=== PATIENT | male | born 1960 | race Caucasian/White ===

== ENCOUNTER → 2019-11-04 09:49 | Outpatient (BNVA) | payer MEDICAID, SELFPAY | PROVIDERS: Family Provider Family Medicine; PCP Family Medicine; Visit Provider Specialist | DX: G60.0 Hereditary motor and sensory neuropathy (principal); M51.9 Unspecified thoracic, thoracolumbar and lumbosacral intervertebral disc disorder | CPT/HCPCS: 99213 ==

== ENCOUNTER → 2020-02-22 10:36 | Outpatient (BNVA) | payer MEDICAID, SELFPAY | PROVIDERS: Family Provider Family Medicine; PCP Family Medicine; Referring Provider Family Medicine; Visit Provider Orthopaedic Surgery | DX: M25.569 Pain in unspecified knee (principal); M25.462 Effusion, left knee; M25.461 Effusion, right knee | CPT/HCPCS: 73560; 73565 ==

== ENCOUNTER 2020-03-02 13:04 | Outpatient (CLI) | payer MEDICAID, SELFPAY ==
--- NOTE | 2020-03-02 13:45 | MR_ITS ---
WS: [id number] MRI LEFT KNEE NONCONTRAST TECHNIQUE: Axial PD, coronal PD fat sat, coronal PD, sagittal PD, and sagittal PD fat-sat images obta ined. CLINICAL INFORMATION: lateral meniscus tear of left knee COMPARISON: None. FINDINGS: Normal anatomic alignment. Distal quadriceps and patella tendons are intact. Hypertrophic patella. An terior and posterior cruciate ligaments are intact. Small amount of edema in Hoffa's fat pad. Tiny nicolette int effusion. Hazy intrasubstance signal abnormality involving the posterior horn medial meniscus. Ch ronic appearing intrasubstance signal abnormality involving the anterior and posterior horns lateral meniscus. Small radial tear involving the posterior horn lateral meniscus best seen on the coronal im aging. Moderate chondromalacia patella. No subchondral edema. Normal medial and lateral patellar retinaculum . Normal popliteal fossa. MR/MR knee LT wo con* [id number] IMPRESSION: 1. Small radial tear involving the posterior horn lateral meniscus best seen o n the coronal imaging, extending to the articular surface. 2. Otherwise chronic intrasubstance signal abnormality involving the medial an d lateral meniscus. 3. Anterior and posterior cruciate ligaments appear intact. 4. Moderate chondromalacia patella with hypertrophic patella.
== END 2020-03-02 13:05 | disposition home or self-care (01) ==
LOC: RADSHAW 13:06
PROVIDERS: PCP Family Medicine; Visit Provider Orthopaedic Surgery
DX: S83.282A Other tear of lateral meniscus, current injury, left knee, initial encounter (principal); X58.XXXA Exposure to other specified factors, initial encounter; M22.42 Chondromalacia patellae, left knee
CPT/HCPCS: 73721

== ENCOUNTER → 2020-10-31 08:31 | Outpatient (BNVA) | payer MEDICAID, SELFPAY | PROVIDERS: PCP Family Medicine; Visit Provider Specialist | DX: M72.2 Plantar fascial fibromatosis (principal); G60.0 Hereditary motor and sensory neuropathy; M51.9 Unspecified thoracic, thoracolumbar and lumbosacral intervertebral disc disorder | CPT/HCPCS: 99213 ==

== ENCOUNTER → 2020-11-17 13:23 | Outpatient (BNVA) | payer MEDICAID, SELFPAY | PROVIDERS: PCP Family Medicine; Referring Provider Specialist; Visit Provider Podiatrist Foot & Ankle Surgery | DX: G57.61 Lesion of plantar nerve, right lower limb (principal); G57.62 Lesion of plantar nerve, left lower limb; M79.671 Pain in right foot; M79.672 Pain in left foot | CPT/HCPCS: 73630 ==

== ENCOUNTER → 2022-01-02 10:25 | Outpatient (BNVA) | payer MEDICAID, SELFPAY | PROVIDERS: PCP Family Medicine; Referring Provider Family Medicine; Visit Provider Physician Assistant | DX: M51.9 Unspecified thoracic, thoracolumbar and lumbosacral intervertebral disc disorder (principal) | CPT/HCPCS: 72110 ==

== ENCOUNTER → 2022-01-11 08:59 | Outpatient (BNVA) | payer MEDICAID, SELFPAY | PROVIDERS: PCP Family Medicine; Visit Provider Orthopaedic Surgery | DX: Z01.818 Encounter for other preprocedural examination (principal); M51.26 Other intervertebral disc displacement, lumbar region | CPT/HCPCS: 87635 ==

== ENCOUNTER 2022-01-17 05:59 | Day surgery (SDC) | payer MEDICAID, SELFPAY ==
[2022-01-09 09:11] VITALS: BMI 31.1
--- NOTE | 2022-01-09 09:48 | ANES.PREANE2 ---
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,L4-5 Operation Date: 01/15/22 12:00 Proposed Procedures p Lumbar Spine Decompression L3/4/L4/5/44443/48201/lumbar stenosis w/neurogenic claudication(Not Applicable) - Fredis Doe, DO Familial anesthetic complications: None Was Beta Mara taken within 24 hours: N/A Social No alcohol and No tobacco Exam alert, oriented x 3, clear to auscultation bilaterally and regular rate & rhythm Airway Submandibular: within normal limits Cervical ROM: within normal limits Mallampati: Class II Metabolic Morbid Obesity Musc/skel Lower Back Pain and Osteoarthritis/DJD Anesthetic Plan ASA status: 3 Anesthesia: General Risk of > 500 ml blood loss (7ml/kg in children): No Medications/Allergies Home Medications Medication Instructions Recorded Confirmed Last Taken Type meloxicam 15 mg tablet 15 mg PO DAILY 02/22/20 01/09/22 Unknown History Allergies Allergy/AdvReac Type Severity Reaction Status Date / Time Penicillins Allergy itching Verified 01/02/22 10:37 [facility] Anesthesia Medical History (Updated 01/02/22 @ 14:42 by Balta Suero PA-C) Hypertension Neuropathy Right leg numbness Surgical History (Updated 01/09/22 @ 09:10 by Debbie Ji) History of appendectomy Family History Other Hypertension Denies family history of Diabetes CAD (coronary artery disease) Social History Smoking and tobacco status: never smoked Alcohol intake: former History of recent travel: No Data Anesthesia Cardiac Studies: No Data to Display
[2022-01-17] VITALS (11 sets, daily range): BP systolic 109–156; BP diastolic 58–114; PULSE 66–73; RESP 16–19; TEMP 36.1–36.4; O2SAT 93–100
--- NOTE | 2022-01-17 | SCC_ITS ---
Procedure done: 1. L3/4 laminectomy with partial facetectomies 2. L4/5 Laminectomies with partial facetectomies 11.4 seconds of fluoroscopic guidance, for a cumulative dose of 4.59 mGy, was provided to Dr. Doe by the radiology department. C-arm images of the lumbar spine were saved for the patient's permanent record. [facility]
--- NOTE | 2022-01-17 | XR_ITS ---
WS: [id number] XR lumbar spine 1V [id number] REASON FOR EXAM: lumbar decompression FINDINGS: Localization of the lumbar spine at the L4 level. XR/XR lumbar spine 1V [id number] IMPRESSION: Intraoperative localization of the lumbar spine.
[2022-01-17] MEDS: sodium chloride 0.9% 1,000 ML 30 ML IV (06:26)
--- NOTE | 2022-01-17 06:34 | P.ANESUD_ITS ---
Pre-Anesthetic Update Pre-Anesthetic Assessment: Date of Surgery/Procedure: 01/17/22 Preop Christine gnosis: HNP right L3-4,L4-5 Proposed Procedure: Operation Date: 01/17/22 07:00 Proposed Procedures p Lumbar Spine Decompression L3/4/L4/5/25783/33869/lumbar stenosis w/neurogenic claudication(Not Applicable) - Fredis Doe, DO Any changes to Pre-Anesthetic Assessment?: Yes Changes from Pre-Anesthetic Assessment: Patient sates his back quit hurting on saturday, eencouraged patient to inform surgeon, but he states It comes and goes Last Intake: Intake Last Liquid Date 01/16/22 Last Liquid Time 19:00 Last Solid Date 01/16/22 Last Solid Time 19:00 Vitals: Temperature 97.3 F L 01/17/22 06:09 Temperature Source Temporal Artery S can 01/17/22 06:09 Pulse Rate 66 01/17/22 06:09 Respiratory Rate 18 01/17/22 06:09 Blood Pressure 156/114 01/17/22 06:09 Blood Pressure Camila n 128 01/17/22 06:09 Pulse Oximetry 97 01/17/22 06:09 Oxygen Delivery Me thod 01/17/22 06:12 Exam: Pre-Anes Outpt Exam: alert, oriented x 3, clear to auscultation bilaterally and regular rate & rhythm Cardiac Studies: No Data to Display
[2022-01-17] MEDS: clindamycin 900 MG/50 ML PREMIX 100 MG IV (06:56)
--- NOTE | 2022-01-17 06:58 | W.PM.OPSUD ---
Surgery/Procedure H&P Update DATE OF PROCEDURE: January 17, 2022 DATE H&P PERFORMED: 01/02/22 H&P UPDATE INFORMATION: I have reviewed H&P completed within last 30 days, I have examined patient prior to procedure and No changes to prior documentation PREOP DIAGNOSIS: HNP right L3-4,L4-5 PLANNED PROCEDURE: Operation Date: 01/17/22 07:00 Proposed Procedures p Lumbar Spine Decompression L3/4/L4/5/61693/81110/lumbar stenosis w/neurogenic claudication(Not Applicable) - Fredis Doe DO
[2022-01-17] MEDS: vancomycin 1,000 MG SDV 1000 MG XX (08:01)
--- NOTE | 2022-01-17 08:27 | PM.OP ---
Operative Report Date of procedure: January 17, 2022 Pre-op diagnosis: Preop Diagnosis HNP right L3-4,L4-5 Post-op diagnosis: same Procedure done: 1. L3/4 laminectomy with partial facetectomies 2. L4/5 Laminectomies with partial facetectomies Procedure: 1. L3/4 laminectomy with partial facetectomies 2. L4/5 Laminectomies with partial facetectomies Patient is brought to the operative suite. After undergoing anesthesia they are placed in the prone position. All areas of impingement are well padded. Patient is then prepped and draped in the normal sterile fashion. A skin incision is made over the L3/4 and L4/5 level. This is confirmed under c-arm guidance. A bovie is used to clear the soft tissue off the lamina and the L3/4 facet joint. A high speed manny is then used to perform the laminectomy and take down the medial aspect of the L 3/4 facet joint. A kerrison rongeure was then used to take down the remaining lamina and smooth the edged of the laminectomy up to the point where the ligamentum flavum attaches. Attention was then brought to the medial aspect of the facet joint. The remaining medial aspect of the superior and inferior aspect of the facet joint were taken down with the kerrison from the pedicle of L3 to L 4. The facet joint had significant hypertrophy. Attention was then brought to the Ligamentum Flavum. The ligament was taken down from the lamina of L3 to L4 and out medially to the remaining facet joint. The ligament was thick. The dura was then exposed. The dura was in good repair. The L3 nerve was then traced with a curette out the L3/4 foramen and found to be adequately decompressed. The L4 nerve was traced with a curette around the L4 pedicle. The lateral recess was opened with a kerrison helping to further decompress the L4 nerve. The high speed manny was used to take down the spinous process and then the contralateral lamina of L3. The kerrison rongeur was used to take down the remaining lamina to the point where the ligamentum flavum attached and the ligamentum flavum was taken down from L3 to L4. The kerrison rongeur was then used to reach across and take down the medial aspect of the contralateral L3/4 facet joint.The currete was used to trace the contralateral L3 nerve out the L3/4 foramen to make sure it was decompressed adequatesly and the L4 was traced around the L4 pedicle. The lateral recess was opened further with the kerrison to ensure the L4 is adequately decompressed. A bovie is used to clear the soft tissue off the lamina 4 and the L 4/5 facet joint. A high speed manny is then used to perform the laminectomy and take down the medial aspect of the L 4/5 facet joint. A kerrison rongeure was then used to take down the remaining lamina and smooth the edged of the laminectomy up to the point where the ligamentum flavum attaches. Attention was then brought to the medial aspect of the facet joint. The remaining medial aspect of the superior and inferior aspect of the facet joint were taken down with the kerrison from the pedicle of L4 to L 5. The facet joint had significant hypertrophy. Attention was then brought to the Ligamentum Flavum. The ligament was taken down from the lamina of L4 to L5 and out medially to the remaining facet joint. The ligament was thick. The dura was then exposed. The dura was in good repair. The L4 nerve was then traced with a curette out the L4/5 foramen and found to be adequately decompressed. The L5 nerve was traced with a curette around the L5 pedicle. The lateral recess was opened with a kerrison helping to further decompress the L5 nerve. The high speed manny was used to take down the spinous process and then the contralateral lamina of L4. The kerrison rongeur was used to take down the remaining lamina to the point where the ligamentum flavum attached and the ligamentum flavum was taken down from L4 to L5. The kerrison rongeur was then used to reach across and take down the medial aspect of the contralateral L4/5 facet joint.The currete was used to trace the contralateral L4 nerve out the L4/5 foramen to make sure it was decompressed adequatesly and the L5 was traced around the L5 pedicle. The lateral recess was opened further with the kerrison to ensure the L5 is adequately decompressed. Wound is then irrigated copiously with saline and surgiflo is used to stop any bleeding. The tubular retractor is removed and the wound is closed with vicryl and monocryl suture. Glue is then used to protect the wound. A sterile dressing is then placed. Patient was then placed in the supine position and transferred to the PACU in stable condition.
[2022-01-17] MEDS: fentaNYL 50 mcg/mL INJ 2mL IVP (08:56)
[2022-01-17] MEDS: HYDROcodone-acetaminophen 5-325 mg Tablet 1 TAB PO (10:04)
--- NOTE | 2022-01-17 13:31 | ANE.PACU2 ---
Inpatient post-anesthesia follow up: Airway intact: Yes Vital signs: Temperature 97.6 F Pulse Rate 73 Respiratory Rate 18 Blood Pressure 122/70 Pulse Oximetry 97 Oxygen Delivery Me thod Room Air Oxygen Flow Rate 6 Fraction of Inspir ed Oxygen Hydration adequate: Yes Nausea and vomiting: No Pain level: 2 Mental status: Baseline
== END 2022-01-17 10:05 | disposition home or self-care (01) ==
PROVIDERS: PCP Family Medicine; Visit Provider Orthopaedic Surgery
PROC: (CPT 63005; principal; 2022-01-17 07:00)
DX: M48.062 Spinal stenosis, lumbar region with neurogenic claudication (principal); E66.01 Morbid (severe) obesity due to excess calories; Z68.31 Body mass index [BMI] 31.0-31.9, adult; I10 Essential (primary) hypertension; Z82.49 Family history of ischemic heart disease and other diseases of the circulatory system; G62.9 Polyneuropathy, unspecified
CPT/HCPCS: 63047; 63048; 72020; 76000; 86850; 86900; J0330; J1100; J2250; J2405; J2704; J2710; J3010; J3370; J3490; J7030

== ENCOUNTER → 2022-01-18 10:33 | Outpatient (BNVA) | payer MEDICAID, SELFPAY | PROVIDERS: PCP Family Medicine; Visit Provider Physician Assistant | DX: Z47.89 Encounter for other orthopedic aftercare (principal); Z98.890 Other specified postprocedural states | CPT/HCPCS: 99024; 99999 ==

== ENCOUNTER → 2022-01-23 10:11 | Outpatient (BNVA) | payer MEDICAID, SELFPAY | PROVIDERS: PCP Family Medicine; Visit Provider Orthopaedic Surgery | DX: Z47.89 Encounter for other orthopedic aftercare (principal); Z98.890 Other specified postprocedural states | CPT/HCPCS: 99024; 99999 ==

== ENCOUNTER 2022-01-23 11:32 | Inpatient (IN) | payer MEDICAID, SELFPAY ==
[2022-01-23 11:46] VITALS: BP 163/90; PULSE 74; RESP 20; TEMP 37; O2SAT 97; BMI 31.8
--- NOTE | 2022-01-23 11:56 | W.ED.BACK ---
Documented by User: VIRGEN Banks 01/23/22 15:35 HPI - Back Pain/Injury General: Chief Complaint: Back Pain/Injury Stated Complaint: back pain Time Seen by Provider: 01/23/22 11:56 Source: patient Mode of arrival: ambulatory Limitations: no limitations History of Present Illness: Patient is a 61-year-old male who presents to ED today at the request of Dr. Doe for lumbar MRI imaging. Patient had surgery by Dr. Doe on 01/17. Dr. Doe saw patient in his office today and patient was complaining of worsening back pain and bilateral leg weakness therefore was sent to the ED for evaluation of a possible epidural hematoma. Patient states he has had pain following the surgery but it has worsened over the past 72 hours. He is complaining of pain down the bilateral posterior aspects of his legs. He does not complain of urinary retention or bowel incontinence. MD elicited complaint: back pain Pertinent past history: back surgery Onset (ago): day(s) Timing: constant Severity: severe Location: lumbar spine Radiation: left upper leg and right upper leg Associated symptoms: Reports difficulty walking (secondary to pain); Deny chills, fatigue or fever(s) Work related injury: No Review of Systems Const: Denies: fever(s), chills, body aches, fatigue or malaise Card: Denies: chest pain Resp: Denies: dyspnea Musc: Reports: back pain; Denies: neck pain, extremity pain or joint pain Skin/Breast: Denies: rash Neuro: Reports: weakness in extremities and difficulty walking (secondary to pain); Denies: headache(s) [facility] ED PFSH: Medical History Hypertension Neuropathy Right leg numbness Surgical History History of appendectomy Family History Other Hypertension Denies family history of Diabetes CAD (coronary artery disease) Social History Smoking and tobacco status: never smoked Alcohol intake: former History of recent travel: No Physical Exam Const: COMMON NORMALS: no acute distress, patient oriented x3, no limitations and alert GENERAL APPEARANCE: cooperative ORIENTATION/CONSCIOUSNESS: Yes awake, Yes oriented to person, Yes oriented to place and Yes oriented to time Neck/C-Spine: COMMON NORMALS: full ROM CERVICAL SPINE: Yes cervical ROM normal, No pain with cervical ROM and No Cervical spine tenderness Resp: COMMON NORMALS: normal respiratory effort and clear to auscultation bilaterally AUSCULTATION: clear to auscultation bilaterally Cardio: COMMON NORMALS: regular rate and regular rhythm RATE: regular rate RHYTHM: regular rhythm Back/Pelvis: THORACIC SPINE/UPPER BACK: Yes normal to inspection LUMBAR SPINE/LOWER BACK: Yes ROM limited, Yes lumbar spinal tenderness and No paraspinal muscle spasm PELVIS: Yes buttocks normal OTHER: pt had detailed lumbar/neurological evaluation performed by neurosurgeon prior to arrival to ED; he is currently seated in a recliner thus making exam difficult Extremity: GENERAL: Yes normal exam except as noted OTHER: mild bilateral LE non-pitting edema that he states is chronic Neuro: COMMON NORMALS: patient oriented x3, moves all extremities, no focal motor deficits and no sensory deficits noted SENSORIUM/ORIENTATION: Yes alert, Yes oriented to person, Yes oriented to place and Yes oriented to time Skin: COMMON NORMALS: no rashes or lesions noted NARRATIVE SKIN EXAM: surgical lumbar incision looks clean/infection free GENERAL SKIN EXAM: no rashes or lesions noted Course Consultations: Consultation #1: Dr. Doe-admit to his service with plan for OR tomorrow Vital Signs: Vital signs: Vital Signs Temperature 98.6 F 01/23/22 11:46 Pulse Rate 74 01/23/22 11:46 Respiratory Rate 20 H 01/23/22 11:46 Blood Pressure 163/90 01/23/22 11:46 Pulse Oximetry 97 01/23/22 11:46 MDM - Back Pain/Injury Medical Decision Making Will admit to Dr. Doe with plan for hematoma evaluation tomorrow. Labs : 01/23/22 12:24 01/23/22 12:24 Radiology Impressions Lumbar Spine MRI 01/23/22 12:10 IMPRESSION: 1. Recent decompressive laminectomy defects L3-L4 and L4-L5. 2. Moderate to severe narrowing of the thecal sac with crowding of the cauda equina nerve rootlets worse posterior to the L4 vertebral body level due to dorsal epidural blood products with fluid and edema. 3. Central disc extrusion L3-L4 with cranial migration of disc material results in moderate to severe central canal stenosis not significantly changed. 4. No other significant changes compared to previous. Notified VIRGEN Banks at 01/23/2022 2:50 PM. Laboratory Results WBC 6.0 10^3/uL (4.0-10.0) 01/23/22 12: RBC 4.19 10^6/uL (4.1-5.3) 01/23/22 12: Hgb 12.8 g/dL (11.7-16.6) 01/23/22 12: Hct 39.1 % (42.0-52.0) L 01/23/22 12: MCV 93.3 fl (80-94) 01/23/22: MCH 30.5 pg (28.0-34.0) 01/23/22 12: MCHC 32.7 g/dL (30.0-36.0) 01/23/22: RDW 12.4 % (12.1-15.1) 01/23/22 12: Plt Count 344 10^3/cmm (130-400) 01/23/22 12: MPV 9.1 fL (7.4-10.4) 01/23/22: Neut % (Auto) 65.1 % 01/23/22: Lymph % (Auto) 24.6 % 01/23/22 12: Scott % (Auto) 8.0 % 01/23/22 12: Eos % (Auto) 1.5 % 01/23/22: Baso % (Auto) 0.5 % 01/23/22: Neut # (Auto) 3.88 10^3/uL (1.8-7.7) 01/23/22 12: Lymph # (Auto) 1.5 10^3/uL (0.8-4.8) 01/23/22: Scott # (Auto) 0.5 10^3/uL (0.2-0.9) 01/23/22 12: Eos # (Auto) 0.1 10^3/uL (0.0-0.8) 01/23/22: Baso # (Auto) 0.0 10^3/uL (0.0-0.1) 01/23/22 12:24 Nucleated RBC % (auto) 0 % 01/23/22 12:24 Nucleated RBCs # 0.0 /100WBC 01/23/22 12:24 Sodium 138 mmol/L (136-145) 01/23/22 12:24 Potassium 3.8 mmol/L (3.5-5.1) 01/23/22 12:24 Chloride 103 mmol/L (98-107) 01/23/22 12:24 Carbon Dioxide 28 mmol/L (22-29) 01/23/22 12:24 Anion Gap 10.8 (5-19) 01/23/22 12:24 BUN 16 mg/dL (8-23) 01/23/22 12:24 Creatinine 0.9 mg/dL (0.7-1.2) 01/23/22 12:24 GFR Calculation 86.1 mL/min (90-130) L 01/23/22 12:24 Glucose 117 mg/dL (65-115) H 01/23/22 12:24 Calculated Osmolality 288 mOsm/kg (285-295) 01/23/22 12:24 Calcium 9.4 mg/dL (8.5-10.5) 01/23/22 12:24 Total Bilirubin 0.2 mg/dL (0.15-1.2) 01/23/22 12:24 AST 17 U/L (0-40) 01/23/22 12:24 ALT 13 U/L (0-41) 01/23/22 12:24 Alkaline Phosphatase 79 IU/L (40-130) 01/23/22 12:24 Total Protein 6.6 g/dL (6.6-8.7) 01/23/22 12:24 Albumin 3.9 g/dL (3.5-5.2) 01/23/22 12:24 Globulin 2.7 g/dL (1.3-4.6) 01/23/22 12:24 Discharge Plan Discharge Patient Disposition: Admitted As Inpatient Clinical Impression: Spinal epidural hematoma Condition: Stable Coding Level of Care Code ED Electrician Second for Chg Fwd Exam Comprehensive Documented by User: Nik Liz DO 01/23/22 15:38 HPI - Back Pain/Injury General: Chief Complaint: Back Pain/Injury Stated Complaint: back pain Time Seen by Provider: 01/23/22 11:56 PFSH ED PFSH: Medical History Hypertension Neuropathy Right leg numbness Surgical History History of appendectomy Family History Other Hypertension Denies family history of Diabetes CAD (coronary artery disease) Social History Smoking and tobacco status: never smoked Alcohol intake: former History of recent travel: No Course Vital Signs: Vital signs: Vital Signs Temperature 98.6 F 01/23/22 11:46 Pulse Rate 74 01/23/22 11:46 Respiratory Rate 20 H 01/23/22 11:46 Blood Pressure 163/90 01/23/22 11:46 Pulse Oximetry 97 01/23/22 11:46 MDM - Back Pain/Injury Medical Decision Making Will admit to Dr. Doe with plan for hematoma evaluation tomorrow. Reviewed and discussed with midlevel. Will admit orders written diagnosis epidural hematoma Dr. Doe has agreed to take his primary physician. Medical Records I reviewed the patient's medical records. Labs I reviewed the patient's lab results. : 01/23/22 12:24 01/23/22 12:24 Radiology Impressions Lumbar Spine MRI 01/23/22 12:10 IMPRESSION: 1. Recent decompressive laminectomy defects L3-L4 and L4-L5. 2. Moderate to severe narrowing of the thecal sac with crowding of the cauda equina nerve rootlets worse posterior to the L4 vertebral body level due to dorsal epidural blood products with fluid and edema. 3. Central disc extrusion L3-L4 with cranial migration of disc material results in moderate to severe central canal stenosis not significantly changed. 4. No other significant changes compared to previous. Notified VIRGEN Banks at 01/23/2022 2:50 PM. Laboratory Results WBC 6.0 10^3/uL (4.0-10.0) 01/23/22: RBC 4.19 10^6/uL (4.1-5.3) 01/23/22 12: Hgb 12.8 g/dL (11.7-16.6) 01/23/22: Hct 39.1 % (42.0-52.0) L 01/23/22: MCV 93.3 fl (80-94) 01/23/22: MCH 30.5 pg (28.0-34.0) 01/23/22: MCHC 32.7 g/dL (30.0-36.0) 01/23/22: RDW 12.4 % (12.1-15.1) 01/23/22: Plt Count 344 10^3/cmm (130-400) 01/23/22: MPV 9.1 fL (7.4-10.4) 01/23/22: Neut % (Auto) 65.1 % 01/23/22: Lymph % (Auto) 24.6 % 01/23/22: Scott % (Auto) 8.0 % 01/23/22 Eos % (Auto) 1.5 % 01/23/22 Baso % (Auto) 0.5 % 01/23/22 Neut # (Auto) 3.88 10^3/uL (1.8-7.7) 01/23/22 Lymph # (Auto) 1.5 10^3/uL (0.8-4.8) 01/23/22: Scott # (Auto) 0.5 10^3/uL (0.2-0.9) 01/23/22 Eos # (Auto) 0.1 10^3/uL (0.0-0.8) 01/23/22 Baso # (Auto) 0.0 10^3/uL (0.0-0.1) 01/23/22 Nucleated RBC % (auto) 0 % 01/23/22 Nucleated RBCs # 0.0 /100WBC 01/23/22 12:24 Sodium 138 mmol/L (136-145) 01/23/22 12:24 Potassium 3.8 mmol/L (3.5-5.1) 01/23/22 12:24 Chloride 103 mmol/L (98-107) 01/23/22 12:24 Carbon Dioxide 28 mmol/L (22-29) 01/23/22 12:24 Anion Gap 10.8 (5-19) 01/23/22 12:24 BUN 16 mg/dL (8-23) 01/23/22 12:24 Creatinine 0.9 mg/dL (0.7-1.2) 01/23/22 12:24 GFR Calculation 86.1 mL/min (90-130) L 01/23/22 12:24 Glucose 117 mg/dL (65-115) H 01/23/22 12:24 Calculated Osmolality 288 mOsm/kg (285-295) 01/23/22 12:24 Calcium 9.4 mg/dL (8.5-10.5) 01/23/22 12:24 Total Bilirubin 0.2 mg/dL (0.15-1.2) 01/23/22 12:24 AST 17 U/L (0-40) 01/23/22 12:24 ALT 13 U/L (0-41) 01/23/22 12:24 Alkaline Phosphatase 79 IU/L (40-130) 01/23/22 12:24 Total Protein 6.6 g/dL (6.6-8.7) 01/23/22 12:24 Albumin 3.9 g/dL (3.5-5.2) 01/23/22 12:24 Globulin 2.7 g/dL (1.3-4.6) 01/23/22 12:24 Discharge Plan Discharge Patient Disposition: Admitted As Inpatient Clinical Impression: Spinal epidural hematoma Condition: Stable Coding Level of Care Code ED Electrician Second for Chg Fwd Exam Comprehensive
--- NOTE | 2022-01-23 12:10 | MR_ITS ---
WS: [id number] MRI LUMBAR SPINE WITH CONTRAST TECHNIQUE: Sagittal T1, T2 and STIR imaging. Axial T1 and T2 imaging. Post gadolinium imaging was obt ained. CLINICAL INFORMATION: recent surgery; back pain, leg weakness COMPARISON: MRI December 22, 2021 FINDINGS: Interval postoperative changes laminectomy defects L3-L4 and L4-L5 are new from previous. Recent lami nectomy defects with postoperative edema and epidural blood products at the L3-L4 and L4-L5 level. Th is is worse posterior to the L4 vertebral body with mass effect on the thecal sac. This results in mo derate to severe narrowing of the thecal sac with crowding of the cauda equina nerve rootlets worse a t the L4 level. Recommend correlation with clinical symptoms. Moderate to severe central canal stenos is L3-L4 due to stable subligamentous disc extrusion at this level. This is unchanged from previous. L1-L2: Normal. L2-L3: Mild annular bulging. Mild central canal stenosis. Moderate facet arthropathy. LEFT foraminal protrusion with mild LEFT foraminal narrowing. RIGHT foramen is patent. Moderate facet arthropathy. L3-L4: Central disc extrusion with disc material migration posterior to the L3 vertebral body. Modera te to severe central canal stenosis with moderate facet arthropathy similar to the prior examination. Mild LEFT greater than RIGHT foraminal narrowing. L4-L5: Wide laminectomy defects. Epidural blood products and edema in the laminectomy sites with mode rate to severe compression of the thecal sac. Moderate to severe crowding of the cauda equina nerve r ootlets. Mild RIGHT greater than LEFT foraminal narrowing. Moderate facet arthropathy. L5-S1: Mild disc bulging and osteophytic ridging. Mild facet arthropathy. Spinal canal and foramen ar e patent. Visualized pelvic bony structures: Normal. Paravertebral soft tissues: Normal. MR/MR lumbar spine wo/w con [id number] IMPRESSION: 1. Recent decompressive laminectomy defects L3-L4 and L4-L5. 2. Moderate to severe narrowing of the thecal sac with crowding of the cauda e quina nerve rootlets worse posterior to the L4 vertebral body level due to dors al epidural blood products with fluid and edema. 3. Central disc extrusion L3-L4 with cranial migration of disc material result s in moderate to severe central canal stenosis not significantly changed. 4. No other significant changes compared to previous. Notified VIRGEN Banks at 01/23/2022 2:50 PM.
[2022-01-23 12:38] LABS: Basophils % 0.5 %; Eosinophils # 0.1 10^3/uL (0.0-0.8); Eosinophils % 1.5 %; Hematocrit 39.1 % (42.0-52.0); Hemoglobin 12.8 g/dL (11.7-16.6); Lymphocytes # 1.5 10^3/uL (0.8-4.8); Lymphocytes % 24.6 %; Mean Corpuscular HGB Conc 32.7 g/dL (30.0-36.0); Mean Corpuscular Hemoglobin 30.5 pg (28.0-34.0); Mean Corpuscular Volume 93.3 fl (80-94); Mean Platelet Volume 9.1 fL (7.4-10.4); Monocytes # 0.5 10^3/uL (0.2-0.9); Neutrophils # 3.88 10^3/uL (1.8-7.7); Neutrophils % 65.1 %; Nucleated Red Blood Cells % 0 %; Platelet Count 344 10^3/cmm (130-400); Red Blood Count 4.19 10^6/uL (4.1-5.3); Red Cell Distribution Width 12.4 % (12.1-15.1)
[2022-01-23 13:04] LABS: Alanine Aminotransferase 13 U/L (0-41); Albumin Level 3.9 g/dL (3.5-5.2); Alkaline Phosphatase 79 IU/L (40-130); Anion Gap 10.8 (5-19); Aspartate Amino Transferase 17 U/L (0-40); Blood Urea Nitrogen 16 mg/dL (8-23); Calcium 9.4 mg/dL (8.5-10.5); Carbon Dioxide 28 mmol/L (22-29); Chloride 103 mmol/L (98-107); Globulin 2.7 g/dL (1.3-4.6); Glomerular Filtration Rate 86.1 mL/min (90-130); Glucose 117 mg/dL (65-115); Osmolality Calculated 288 mOsm/kg (285-295); Potassium 3.8 mmol/L (3.5-5.1); Sodium 138 mmol/L (136-145); Total Bilirubin 0.2 mg/dL (0.15-1.2); Total Protein 6.6 g/dL (6.6-8.7)
--- NOTE | 2022-01-23 15:25 | ECG_ITS ---
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 Measurements Intervals [place] Rate: 61 P: 30 DC: 160 QRS: 11 QRSD: 85 T: 49 QT: 387 QTc: 392 Interpretive Statements SINUS RHYTHM WITH OCCASIONAL VENTRICULAR PREMATURE COMPLEXES No previous ECG available for comparison Electronically Signed On 01-23-2022 18:37:13 CDT by Lana Kirby M.D. [id number] f
--- NOTE | 2022-01-23 15:25 | XRR_ITS ---
PROCEDURE INFORMATION: Exam: XR Chest Exam date and time: 01/23/2022 3:57 PM Age: 61 years old Clinical indication: Cough and dyspnea; Additional info: Dyspnea/cough TECHNIQUE: Imaging protocol: XR of the chest. Views: 1 view. COMPARISON: No relevant prior studies available. FINDINGS: Lungs: Unremarkable. No consolidation. Pleural spaces: Unremarkable. No pleural effusion. No pneumothorax. Heart/Mediastinum: Unremarkable. No cardiomegaly. Bones/joints: Unremarkable. XR/XR chest 1V portable [id number] IMPRESSION: No acute findings.
[2022-01-23 16:05] LABS: INR 0.89 (0.8-1.2); Partial Thromboplastin Time 24.2 SECONDS (23.9-36.7)
[2022-01-23 16:27] VITALS: BP 155/93; PULSE 61; RESP 16; TEMP 37.1; O2SAT 97
[2022-01-23 16:58] VITALS: BP 155/93; PULSE 61; RESP 16; TEMP 37.1; O2SAT 97
[2022-01-23] MEDS: D5-NS 0.45% + KCL 20 mEq 20 MEQ/1,000 ML BAG 100 MEQ IV (17:47)
[2022-01-23] MEDS: morphine 4 mg/mL SDV 1 mL IVP ×2 (17:47→21:55)
[2022-01-23 19:33] VITALS: BP 164/99; PULSE 62; RESP 16; TEMP 36.7; O2SAT 96
--- NOTE | 2022-01-23 21:00 | NUR.SHIFT ---
pt states he has numbness in bilateral legs. A&ox4, clear speech, claims left eye had surgery, which is why left pupil is smaller.
[2022-01-23 21:55] VITALS: RESP 20
[2022-01-24] VITALS (27 sets, daily range): BP systolic 119–154; BP diastolic 69–92; PULSE 59–77; RESP 14–116; TEMP 36.3–36.9; O2SAT 91–100
[2022-01-24] MEDS: morphine 4 mg/mL SDV 1 mL IVP ×2 (02:03→05:51)
[2022-01-24] MEDS: D5-NS 0.45% + KCL 20 mEq 20 MEQ/1,000 ML BAG 100 MEQ IV (04:23)
[2022-01-24 06:15] LABS: Basophils % 0.4 %; Eosinophils # 0.2 10^3/uL (0.0-0.8); Eosinophils % 2.7 %; Hematocrit 38.4 % (42.0-52.0); Hemoglobin 12.4 g/dL (11.7-16.6); Lymphocytes # 1.8 10^3/uL (0.8-4.8); Mean Corpuscular HGB Conc 32.3 g/dL (30.0-36.0); Mean Corpuscular Hemoglobin 30.7 pg (28.0-34.0); Monocytes # 0.6 10^3/uL (0.2-0.9); Monocytes % 10.5 %; Neutrophils # 2.98 10^3/uL (1.8-7.7); Neutrophils % 53.9 %; Nucleated Red Blood Cells % 0 %; Platelet Count 290 10^3/cmm (130-400); Red Blood Count 4.04 10^6/uL (4.1-5.3); Red Cell Distribution Width 12.4 % (12.1-15.1); White Blood Count 5.5 10^3/uL (4.0-10.0)
[2022-01-24 07:03] LABS: Anion Gap 13.5 (5-19); Blood Urea Nitrogen 17 mg/dL (8-23); Calcium 9.1 mg/dL (8.5-10.5); Carbon Dioxide 26 mmol/L (22-29); Chloride 104 mmol/L (98-107); Creatinine Clr Calc Pharmacy 123.8856; Glomerular Filtration Rate 98.6 mL/min (90-130); Glucose 94 mg/dL (65-115); Osmolality Calculated 289 mOsm/kg (285-295); Potassium 4.5 mmol/L (3.5-5.1); Sodium 139 mmol/L (136-145)
--- NOTE | 2022-01-24 07:58 | P.HP_ITS ---
Documented by User: Balta Suero PA-C 01/24/22 08:03 Providers/Chief Complaint Admitting Physician: Fredis Doe DO Primary Care Provider: Mauricio Gasca Chief Complaint: back pain History of Present Illness Lazaro Stanley is a 61 year old male underwent a decompression proximally week and a half ago and was progressing nicely. His leg pain was resolved but had excessive drainage from his lumbar incision that was bloody. With compressive dressings the drainage was stopped followed by progressive weakness and pain returning to his legs. Inability to walk distances. States the pain is a 10 out of 10 on the pain scale. He denies any loss of bowel or bladder control. Denies any fever chills or drainage from his incisional site. He underwent an MRI scan that showed an epidural hematoma. He was then unable to tolerate the pain through the night and presented to the hospital where he was admitted. Plan will be to proceed with a operative decompression for the evacuation of the epidural hematoma. An extensive review of the patient's past medical history, surgical history, allergies, medications, family history, social history, and review of systems was completed Review of Systems Const: Denies: fever(s), chills, body aches, fatigue or malaise Card: Denies: chest pain Resp: Denies: dyspnea Musc: Reports: back pain; Denies: neck pain, extremity pain or joint pain Skin/Breast: Denies: rash Neuro: Reports: weakness in extremities and difficulty walking (secondary to pain); Denies: headache(s) Medications/Allergies Home Medications Medication Instructions Recorded Confirmed Last Taken Type meloxicam 15 mg tablet 15 mg PO DAILY 02/22/20 01/23/22 01/02/22 History hydrocodone 5 mg-acetaminophen 325 1 - 2 tab PO .Q4-6H 5 Days #40 tab 01/23/22 01/23/22 01/23/22 05:30 Rx mg tablet 2 tabs metaxalone 800 mg tablet 800 mg PO Q8H PRN 01/23/22 01/23/22 01/09/22 History naproxen sodium 220 mg tablet 220 mg PO Q12H PRN 01/23/22 01/23/22 Unknown History (Aleve) ropinirole 0.5 mg tablet 0.5 mg PO BEDTIME PRN 01/23/22 01/23/22 Unknown History Allergies Allergy/AdvReac Type Severity Reaction Status Date / Time Penicillins Allergy itching Verified 01/23/22 15:57 PFSH Acute PFSH: Medical History Hypertension Neuropathy Right leg numbness Surgical History History of appendectomy Family History Other Hypertension Denies family history of Diabetes CAD (coronary artery disease) Social History Smoking and tobacco status: never smoked Alcohol intake: former History of recent travel: No Vitals/I&O/Wt Last Vital Signs Temp 98.0 F 01/24/22 07:54 Pulse 59 L 01/24/22 07:54 Resp 18 01/24/22 07:54 BP 148/92 01/24/22 07:54 Pulse Ox 96 01/24/22 07:54 01/23/22 01/24/22 01/24/22 22:59 06:59 14:59 Intake Total 1444 / 1444 Balance 1444 / 1444 Weight last 48 hrs Weight 235 lb Weight 235 lb Physical Exam Narrative: He is alert oriented x3 he has a good general appearance normal mood and affect.? Incisional site appears to be healing nicely without any evidence of drainage.? There is no evidence of infection no erythema.? He does have progressive weakness in both legs he has positive straight leg raise bilaterally is attempt to stand he is unable to dorsiflex and plantarflex comfortably.? He has swelling down both legs.? He is a difficult time walking he is ambulating with a cane.? He has good sensation light touch down both lower extremities skin is clear warm femoral good cap refill.? His calves are supple. HENMT: COMMON NORMALS: normocephalic Resp: COMMON NORMALS: normal respiratory effort Cardio: COMMON NORMALS: regular rate and regular rhythm GI: COMMON NORMALS: non-tender : COMMON NORMALS: Yes no CVA tenderness Psych: COMMON NORMALS: cooperative Data : 01/24/22 05:50 01/24/22 05:50 A&P Assessment and plan (1) Spinal epidural hematoma: Proceed with evacuation of the epidural hematoma. Discussed with the patient and he agrees. Discussed with Dr. Winchester and he agrees above-stated plan. Status: Acute (2) Status post lumbar laminectomy: Status: Acute Attestations Medical Necessity Statement*: Evacuation of epidural hematoma Coding Level of Care Code Acute Supervisor Sulfuric Acid Plant for Chg Fwd Exam Detailed Diagnoses Spinal epidural hematoma Status post lumbar laminectomy Z98.890
[2022-01-24] MEDS: sodium chloride 0.9% 1,000 ML 30 ML IV (09:58)
[2022-01-24] MEDS: fentaNYL 50 mcg/mL INJ 2mL IVP ×2 (10:13→12:20)
--- NOTE | 2022-01-24 10:15 | W.PM.OPSUD ---
Surgery/Procedure H&P Update DATE OF PROCEDURE: January 24, 2022 DATE H&P PERFORMED: 01/24/22 H&P UPDATE INFORMATION: I have reviewed H&P completed within last 30 days, I have examined patient prior to procedure and No changes to prior documentation PREOP DIAGNOSIS: Epidural hematoma lumbar PLANNED PROCEDURE: Operation Date: 01/24/22 10:30 Proposed Procedures p L4/5 hematoma evacuation(Not Applicable) - Fredis Doe DO
--- NOTE | 2022-01-24 10:34 | P.ANESASSM_ITS ---
Pre-Anesthetic Assessment Height/Weight: Height 1.83 m Weight 106.594 kg Temp Pulse Resp BP Pulse Ox 98.0 F 59 L 18 148/92 92 01/24/22 07:54 01/24/22 07:54 01/24/22 10:13 01/24/22 07:54 01/24/22 10:13 Preop Diagnosis: Epidural hematoma lumbar Operation Date: 01/24/22 10:30 Proposed Procedures p L4/5 hematoma evacuation(Not Applicable) - Fredis Doe, DO Familial anesthetic complications: None Was Beta Mara taken within 24 hours: N/A Was Clonidine taken within 24 hours: N/A Social No alcohol and No tobacco Exam alert, oriented x 3, clear to auscultation bilaterally and regular rate & rhythm Airway Submandibular: within normal limits Cervical ROM: within normal limits Mallampati: Class II CV/HEM Hypertension Metabolic Morbid Obesity Musc/[facility] Lower Back Pain and Osteoarthritis/DJD Neuropsych Neuropathy Anesthetic Plan ASA status: 3 Anesthesia: General Medications/Allergies Home Medications Medication Instructions Recorded Confirmed Last Taken Type meloxicam 15 mg tablet 15 mg PO DAILY 02/22/20 01/23/22 01/02/22 History hydrocodone 5 mg-acetaminophen 325 1 - 2 tab PO .Q4-6H 5 Days #40 tab 01/23/22 01/23/22 01/23/22 05:30 Rx mg tablet 2 tabs metaxalone 800 mg tablet 800 mg PO Q8H PRN 01/23/22 01/23/22 01/09/22 History naproxen sodium 220 mg tablet 220 mg PO Q12H PRN 01/23/22 01/23/22 Unknown History (Aleve) ropinirole 0.5 mg tablet 0.5 mg PO BEDTIME PRN 01/23/22 01/23/22 Unknown History Allergies Allergy/AdvReac Type Severity Reaction Status Date / Time Penicillins Allergy itching Verified 01/23/22 15:57 Current Medications Generic Name Dose Route Start Last Admin Trade Name Freq PRN Reason Stop Dose Admin Fentanyl 50 mcg 01/24/22 09:38 01/24/22 10:13 Fentanyl 50 Mcg/Ml Inj 2ml IVP 50 mcg Q10M PRN Administration Preop Pain Potassium Chloride/Dextrose/Sod Cl 20 meq in 1,000 mls @ 100 mls/hr 01/23/22 17:18 01/24/22 04:23 D5-Ns 0.45% + Kcl 20 Meq IV 100 mls/hr .Q10H CORAL Administration Sodium Chloride 1,000 mls @ 30 mls/hr 01/24/22 09:45 01/24/22 09:58 Sodium Chloride 0.9% IV 01/25/22 09:44 30 mls/hr .Q24H CORAL Administration Morphine Sulfate 4 mg 01/23/22 17:18 01/24/22 05:51 Morphine 4 Mg/Ml Sdv 1 Ml IVP 4 mg Q4H PRN Administration SEVERE PAIN PFSH Anesthesia Medical History Hypertension Neuropathy Right leg numbness Surgical History History of appendectomy Family History Other Hypertension Denies family history of Diabetes CAD (coronary artery disease) Social History Smoking and tobacco status: never smoked Alcohol intake: former History of recent travel: No Data Anesthesia : 01/24/22 05:50 01/24/22 05:50 Short CBC 01/23/22 01/24/22 Range/Units 12:24 05:50 WBC 6.0 5.5 (4.0-10.0) 10^3/uL Hgb 12.8 12.4 (11.7-16.6) g/dL Hct 39.1 L 38.4 L (42.0-52.0) % MCV 93.3 95.0 H (80-94) fl Plt Count 344 290 (130-400) 10^3/cmm Neut % (Auto) 65.1 53.9 % Neut # (Auto) 3.88 2.98 (1.8-7.7) 10^3/uL BMP 01/23/22 01/24/22 12:24 05:50 Sodium 138 139 Potassium 3.8 4.5 Chloride 103 104 Carbon Dioxide 28 26 BUN 16 17 Creatinine 0.9 0.8 Glucose 117 H 94 Calcium 9.4 9.1 Liver Function 01/23/22 Range/Units 12:24 Total Bilirubin 0.2 (0.15-1.2) mg/dL AST 17 (0-40) U/L ALT 13 (0-41) U/L Alkaline Phosphatase 79 (40-130) IU/L Albumin 3.9 (3.5-5.2) g/dL Coags 01/23/22 15:31 PT 12.30 INR 0.89 APTT 24.2 Cardiac Studies: No Data to Display
[2022-01-24] MEDS: clindamycin 900 MG/50 ML PREMIX 100 MG IV (10:42)
--- NOTE | 2022-01-24 11:19 | PC.CHAP ---
Pastoral Care Encounter/Spiritual Assessment Type of Contact [] Declined crane hooker visit [] Patient/Family/Request visit [] Outpatient visit [] Follow-up visit [] Physician referral [] Code/Alert [x] Routine visit [] Staff referral [] Actively dying [] Patient sleeping [] Family support [] [x] Out of room [] Palliative care [] [] Receiving care in room [] Pre-surgical visit [] Trauma [] Long length of stay [] ICU visit [] Other: Relational/Emotional Strength [] Patient feels connected with others/family/visitors/staff [] Distress [] Loneliness/isolation [] Abandonment Spirituality of Patient [] Person of Shanta [] Attends Voodoo of their Shanta [] Believes in Prayer [] Reads Bible or Anabaptism materials [] There are Spiritual issues to be addressed Guest Relations Associate Interventions [] Prayer [] Active listening [] Non-anxious presence [] Spiritual/emotional support [] Crisis/trauma care [] Spiritual counseling [] Bereavement support [] Provided bereavement packet [] Provided Bible/devotional materials [] Provided toy/stuffed animal, coloring book to patient or family member [] Provided Communion [] Anointing/Holiday [] Salvation [] Completed spiritual assessment [] Other: Impact on Illness or Injury [] Angry [] Fearful [] Anxious [] Often cries [] Exhaustion [] Unable to work [] Unable to attend cheondoism [] Unable to walk/stand [] Unable to read [] Unable to drive [] Unable to eat/drink [] Unable to sleep [] Unable to be with family [] Patient intubated [] Other: Summary Time spent with patient
[2022-01-24] MEDS: vancomycin 1,000 MG SDV 1000 MG XX (11:20)
--- NOTE | 2022-01-24 11:52 | P.OP_ITS ---
Operative Report Date of procedure: January 24, 2022 Pre-op diagnosis: Preop Diagnosis Epidural hematoma lumbar Post-op diagnosis: same Procedure done: 1. Hematoma evacuation of spine 2. L3 laminectomy with partial facetectomy Surgeon: Fredis Doe Implementation Lead: Balta Suero Estimated blood loss (mL): 20 Procedure: 1. Hematoma evacuation of spine 2. L3 laminectomy with partial facetectomy after undergoing anesthesia patient was placed in the prone position all areas impingement well-padded. Patient was prepped and draped normal sterile fashion. Skin incision made using previous skin incision. Once incision made was made the Vicryl that was then previously was removed. The thoracolumbar fascia was split open again through the same sutures. And then cerebellar retractors were placed. Microscope was brought in and the hematoma was evacuated. The was some pressure up around L3 so more of the laminectomy was performed using high-speed bur Kerrison rongeurs and curettes to ensure that the nerves are complete decompressed. Laterally bilaterally the facets were taken down further using again the high-speed drill and #3 Kerrison rongeur. Nerves were all thought to be completely wide open. There was minimal to no bleeding when the wound was closed. Wound was closed over drain. After being irrigated. The wound was closed in a layered fashion with 0 Vicryl 2-0 Vicryl and nylon suture. Sterile dressings were applied patient was transferred to the PACU in stable condition.
--- NOTE | 2022-01-24 12:24 | SUR.PHASEI ---
1143 PT TO PACU PER BED PT SLEEPY WITH GOOD RESP NOTED ID BAND TO RT WRIST, PT ID'D WITH 2 IDENTIFIERS, IV #18 TO LT HAND PATENT WITH NS 100ML UP AT KVO RATE PER GRAVITY, VSS PT HAS MID LOWER BACK DRESSING D/I HEMAVAC DRAIN COMPRESSED WITH RED DRAINAGE TO TUBING ONLY, GOOD SUCTION MAINTAINED. ABD BINDER IN PLACE, SCDS ON BILATERALLY, PT AWAKES TO VOICE AND MOVES BILAT FEET TO COMMAND. 1159 PT MORE ALERT REPOSITIONS SELF, PT MOVES BILAT FEET STRONGLY WITH DORSA FLEXATION AND EXTENSION, FEET PINK WARM TO TOUCH, PT HOB AT 10 DEGREES, DRESSING REMAINS D/I 1215 SEE EARLIER PAIN MED GIVEN PT STATES PAIN IS UNCHANGED TO LOWER BACK. DRESSING D /I SEE MEDS GIVEN 1228 PT SLEEPS QUIETLY IF NOT DISTURBED, VSS.
[2022-01-24] MEDS: HYDROcodone-acetaminophen 5-325 mg Tablet PO ×2 (15:11→20:34)
[2022-01-24] MEDS: lactated ringers 1,000 ML 90 ML IV (15:12)
--- NOTE | 2022-01-24 16:18 | ANE.PACU2 ---
Inpatient post-anesthesia follow up: Airway intact: Yes Vital signs: Temperature 97.8 F Pulse Rate 68 Respiratory Rate 18 Blood Pressure 154/85 Pulse Oximetry 94 Oxygen Delivery Me thod Room Air Oxygen Flow Rate 2 Fraction of Inspir ed Oxygen Hydration adequate: Yes Nausea and vomiting: No Pain level: 3 Mental status: Baseline
[2022-01-24] MEDS: clindamycin 600 MG/50 ML PREMIX 100 MG IV (20:43)
[2022-01-25] VITALS (8 sets, daily range): BP systolic 106–132; BP diastolic 57–76; PULSE 62–71; RESP 16–19; TEMP 36.6–36.9; O2SAT 92–97
[2022-01-25] MEDS: HYDROcodone-acetaminophen 5-325 mg Tablet PO ×5 (02:52→22:15)
[2022-01-25] MEDS: lactated ringers 1,000 ML 90 ML IV (03:04)
[2022-01-25] MEDS: clindamycin 600 MG/50 ML PREMIX 100 MG IV ×2 (04:00→14:18)
--- NOTE | 2022-01-25 08:17 | PM.PN ---
Subjective Subjective: POD 1 Patient up in bed feeling much better. His leg pain has resolved. Still has some drainage in his Hemovac. Has been mobilizing the halls. Denies any headaches, chest pain, shortness of breath. Vitals/I&O/Wt Last Vital Signs Temp 98.3 F 01/25/22 07:27 Pulse 70 01/25/22 07:37 Resp 16 01/25/22 07:37 BP 119/57 01/25/22 07:27 Pulse Ox 94 01/25/22 07:37 01/24/22 01/25/22 01/25/22 22:59 06:59 14:59 Intake Total 1522 / 1572 1510 / 3082 Output Total 60 / 110 Balance 1522 / 1522 1450 / 2972 Weight last 48 hrs Weight 235 lb Weight 235 lb Weight 235 lb Physical Exam Narrative: Patient presents alert and oriented x3 with a good general appearance normal mood and affect. Normal coordination normal stability. Mild tenderness around the incisional site with the incision appear to be healing nicely. No signs of erythema or drainage. No signs of infection. Patient denies any fevers or chills. 5/5 motor strength both lower extremities with negative straight leg raise bilaterally. Calves are supple no medial thigh tenderness. Pulses are 2+ at the dorsalis pedis and posterior tibial region. Good capillary refill throughout normal sensation light touch both lower extremities. Hemovac intact and draining. Data : 01/24/22 05:50 01/24/22 05:50 A&P Assessment and plan (1) Spinal epidural hematoma: We will continue the Hemovac drain. Continue mobilizing with physical therapy. When the Hemovac drain is less than 50 cc and consideration of discontinuing and discharge. Status: Acute Attestations Medical Necessity Statement*: hold until Lumbar drainage stops Coding Level of Care Code Acute Dietitian Consultant for [facility] John Diagnoses Spinal epidural hematoma
[2022-01-25] MEDS: docusate sodium 100 mg Capsule PO ×2 (10:07→18:14)
--- NOTE | 2022-01-25 10:34 | PC.CHAP ---
Pastoral Care Encounter/Spiritual Assessment Type of Contact [] Declined assignment editor visit [] Patient/Family/Request visit [] Outpatient visit [] Follow-up visit [] Physician referral [] Code/Alert [x] Routine visit [] Staff referral [] Actively dying [] Patient sleeping [] Family support [] [] Out of room [] Palliative care [] [x] Receiving care in room [] Pre-surgical visit [] Trauma [] Long length of stay [] ICU visit [] Other: Relational/Emotional Strength [x] Patient feels connected with others/family/visitors/staff [] Distress [] Loneliness/isolation [] Abandonment Spirituality of Patient [x] Person of Shanta [] Attends Shinto of their Shanta [x] Believes in Prayer [] Reads Bible or Rastafari materials [] There are Spiritual issues to be addressed Auto Heater Mechanic Interventions [x] Prayer [x] Active listening [x] Non-anxious presence [x] Spiritual/emotional support [] Crisis/trauma care [x] Spiritual counseling [] Bereavement support [] Provided bereavement packet [] Provided Bible/devotional materials [] Provided toy/stuffed animal, coloring book to patient or family member [] Provided Communion [] Anointing/[place] [] Salvation [x] Completed spiritual assessment [] Other: Impact on Illness or Injury [] Angry [] Fearful [x] Anxious [] Often cries [] Exhaustion [] Unable to work [] Unable to attend quaker [] Unable to walk/stand [] Unable to read [] Unable to drive [] Unable to eat/drink [] Unable to sleep [] Unable to be with family [] Patient intubated [] Other: Summary Had surgery a week ago has some bleeding twice thrid time some dranage will go home when doctor gives OK has a good attitude Time spent with patient 10 mins
--- NOTE | 2022-01-25 17:48 | PC.PT ---
Patient supine in bed, states has been up and walking earlier, declines out of bed at this time, states doing very well, and agreeable to contact me later when he is wanting to walk, later patient was ambulating independently in the hallway without assistive devices with nonremarkable gait pattern, and visited with me while I was ambulating with another back patient, but fully demonstrating safely independent ambulation, and knowledgeable of post spine program I had dispensed and discussed with him yesterday, and demonstrates no needs at this time. No further attempts at PT to be made, discharge physical therapy.
[2022-01-26] VITALS: BP 128/72; PULSE 60; RESP 17; TEMP 36.7; O2SAT 94
[2022-01-26] MEDS: HYDROcodone-acetaminophen 5-325 mg Tablet PO ×2 (02:11→06:18)
[2022-01-26 04:55] VITALS: BP 139/74; PULSE 60; RESP 17; O2SAT 94
--- NOTE | 2022-01-26 06:53 | PM.PN ---
Subjective Subjective: POD 2 Patient doing much better walking the halls. Minimal drainage. Leg pain resolved. Vitals/I&O/Wt Last Vital Signs Temp 98.0 F 01/26/22 00:00 Pulse 60 01/26/22 04:55 Resp 17 01/26/22 04:55 BP 139/74 01/26/22 04:55 Pulse Ox 94 01/26/22 04:55 01/25/22 01/25/22 01/26/22 14:59 22:59 06:59 Intake Total 840 / 840 1290 / 2130 Balance 840 / 840 1290 / 2130 Weight last 48 hrs Weight 235 lb Physical Exam Narrative: Patient presents a lert and oriented x3 with a good gen eral appearance no rmal mood and affe ct.? Normal coordi nation normal stab ility.? Mild tende rness around the i ncisional site wit h the incision anali ear to be healing nicely.? No signs of erythema or betty inage.? No signs o f infection.? Danielle ent denies any fev ers or chills.? 5/ 5 motor strength b oth lower extremit ies with negative straight leg raise bilaterally.? Donald ves are supple no medial thigh tende rness.? Pulses are 2+ at the dorsali s pedis and molded goods inspector trimmer ior tibial region. ? Good capillary r efill throughout n ormal sensation li ght touch both low er extremities.? Data : 01/24/22 05:50 01/24/22 05:50 A&P Assessment and plan (1) Spinal epidural hematoma: Discontinue Hemovac drain. Continue incentive spirometer at home. Will discharge home to at this morning. Follow-up in 2 weeks time for wound check or 1 week if he is having problems. Status: Acute Attestations Medical Necessity Statement*: home today Coding Level of Care Code Acute Furnace Attendant for Chg Fwd Diagnoses Spinal epidural hematoma
[2022-01-26 07:44] VITALS: BP 147/76; PULSE 55; RESP 17; TEMP 36.7; O2SAT 94
[2022-01-26] MEDS: docusate sodium 100 mg Capsule PO (08:18)
[2022-01-26 08:41] VITALS: PULSE 58; O2SAT 92
--- NOTE | 2022-01-26 09:17 | P.DS_ITS ---
Discharge Providers Date of Admission: 01/23/22 15:27 Date of Discharge: January 26, 2022 Attending Provider at Admission: Fredis Doe DO Attending Provider at Discharge: Fredis Doe DO Primary Care Provider: Mauricio Gasca Diagnoses at Discharge Discharge Diagnosis (1) Spinal epidural hematoma: Status: Acute Reason for Visit Reason for Visit: back pain Hospital Course Hospital Course uneventful Discharge Data Studies Completed and Pending Completed Studies During Hospitalization Category Date Time Status XR chest 1V portable [id number] Stat Exams 01/23/22 15:25 Completed MR lumbar spine wo/w con [id number] Urgent MRI 01/23/22 12:10 Completed Radiology Impressions Lumbar Spine MRI 01/23/22 12:10 IMPRESSION: 1. Recent decompressive laminectomy defects L3-L4 and L4-L5. 2. Moderate to severe narrowing of the thecal sac with crowding of the cauda equina nerve rootlets worse posterior to the L4 vertebral body level due to dorsal epidural blood products with fluid and edema. 3. Central disc extrusion L3-L4 with cranial migration of disc material results in moderate to severe central canal stenosis not significantly changed. 4. No other significant changes compared to previous. Notified VIRGEN Banks at 01/23/2022 2:50 PM. Chest X-Ray 01/23/22 15:25 IMPRESSION: No acute findings. Laboratory Results WBC 5.5 10^3/uL (4.0-10.0) 01/24/22 05:50 RBC 4.04 10^6/uL (4.1-5.3) L 01/24/22 05:50 Hgb 12.4 g/dL (11.7-16.6) 01/24/22 05:50 Hct 38.4 % (42.0-52.0) L 01/24/22 05:50 MCV 95.0 fl (80-94) H 01/24/22 05:50 MCH 30.7 pg (28.0-34.0) 01/24/22 05:50 MCHC 32.3 g/dL (30.0-36.0) 01/24/22 05:50 RDW 12.4 % (12.1-15.1) 01/24/22 05:50 Plt Count 290 10^3/cmm (130-400) 01/24/22 05:50 MPV 9.0 fL (7.4-10.4) 01/24/22 05:50 Neut % (Auto) 53.9 % 01/24/22 05:50 Lymph % (Auto) 32.0 % 01/24/22 05:50 [place] % (Auto) 10.5 % 01/24/22 05:50 Eos % (Auto) 2.7 % 01/24/22 05:50 Baso % (Auto) 0.4 % 01/24/22 05:50 Neut # (Auto) 2.98 10^3/uL (1.8-7.7) 01/24/22 05:50 Lymph # (Auto) 1.8 10^3/uL (0.8-4.8) 01/24/22 05:50 [place] # (Auto) 0.6 10^3/uL (0.2-0.9) 01/24/22 05:50 Eos # (Auto) 0.2 10^3/uL (0.0-0.8) 01/24/22 05:50 Baso # (Auto) 0.0 10^3/uL (0.0-0.1) 01/24/22 05:50 Nucleated RBC % (auto) 0 % 01/24/22 05:50 Nucleated RBCs # 0.0 /100WBC 01/24/22 05:50 PT 12.30 SECONDS (12.1-14.9) 01/23/22 15:31 INR 0.89 (0.8-1.2) 01/23/22 15:31 APTT 24.2 SECONDS (23.9-36.7) 01/23/22 15:31 Sodium 139 mmol/L (136-145) 01/24/22 05:50 Potassium 4.5 mmol/L (3.5-5.1) 01/24/22 05:50 Chloride 104 mmol/L (98-107) 01/24/22 05:50 Carbon Dioxide 26 mmol/L (22-29) 01/24/22 05:50 Anion Gap 13.5 (5-19) 01/24/22 05:50 BUN 17 mg/dL (8-23) 01/24/22 05:50 Creatinine 0.8 mg/dL (0.7-1.2) 01/24/22 05:50 GFR Calculation 98.6 mL/min (90-130) 01/24/22 05:50 Glucose 94 mg/dL (65-115) 01/24/22 05:50 Calculated Osmolality 289 mOsm/kg (285-295) 01/24/22 05:50 Calcium 9.1 mg/dL (8.5-10.5) 01/24/22 05:50 Total Bilirubin 0.2 mg/dL (0.15-1.2) 01/23/22 12:24 AST 17 U/L (0-40) 01/23/22 12:24 ALT 13 U/L (0-41) 01/23/22 12:24 Alkaline Phosphatase 79 IU/L (40-130) 01/23/22 12:24 Total Protein 6.6 g/dL (6.6-8.7) 01/23/22 12:24 Albumin 3.9 g/dL (3.5-5.2) 01/23/22 12:24 Globulin 2.7 g/dL (1.3-4.6) 01/23/22 12:24 Vitals Last Vital Signs Temp 98.1 F 01/26/22 07:44 Pulse 58 L 01/26/22 08:41 Resp 17 01/26/22 07:44 BP 147/76 01/26/22 07:44 Pulse Ox 92 01/26/22 08:41 Discharge Plan Discharge Patient Disposition: Home Condition: Stable Prescriptions: New hydrocodone-acetaminophen 5-325 mg tablet 1 tab PO Q4H Qty: 30 0RF Continued hydrocodone-acetaminophen 5-325 mg tablet 1 - 2 tab PO .Q4-6H 5 Days Qty: 40 0RF ropinirole 0.5 mg tablet 0.5 mg PO BEDTIME PRN (Reason: leg cramps) 0RF metaxalone 800 mg tablet 800 mg PO Q8H PRN (Reason: Muscle Spasm) 0RF Discontinued meloxicam 15 mg tablet 15 mg PO DAILY 0RF naproxen sodium [Aleve] 220 mg Tablet 220 mg PO Q12H PRN (Reason: Pain) 0RF Discharge Orders: Discharge Order (Routine); Ordered 01/26/22 Ordered By: Balta Suero Referrals: Mauricio Gasca [Primary Care Provider] - 7-10 days (Office closed for Good Saturday. Please call Saturday morning and schedule an appointment to be seen by Dr. Gasca in the next 7 days.) Discharge Diet: Advance as tolerated Discharge Activity: Increase activity as tolerated Patient Instructions: Opioid Safety Activity Restrictions/Additional Instructions: Thank you for [facility] for your care! The following is a list of instructions, from your provider, to follow upon your discharge to ensure you have the optimal recovery from your recent injury or surgery. Follow-up care is a laboy part of your treatment and safety. Be sure to make and go to all appointments and call your doctor if you are having problems. If you do not already have a follow-up appointment made, call Dr. Doe's] office in the next 1-3 days to make follow up appointment for 1-2 weeks at [phone]. It is also a good idea to know your test results and keep a list of the medicines you take. Medications will be prescribed for you at your provider's discretion. These medications are to be used as instructed; if they are taken more often that prescribed they will not be refilled early and in most cases will not be refilled at all. > When a refill is needed,you should contact teresa pena 2-3 business days before your prescription runs out. Medications will NOT be refilled by engineering documentation specialist providers after hours! > Many pain medications contain Tylenol (Acetaminophen). Do not consume more than 4,000 mg of Tylenol per day in total with any combination ofmedications. > Pain medications can cause constipation. Please use an over the counter stool softener as directed, while taking pain medications. Consult your local pharmacist with questions or recommendations on stool softeners. If constipation persists, contact our office or your primary care provider. > While under our care, you are not to receive pain medications or other controlled substances from any other provider unless our office is notified and approves. Any attempts to do so will result in refusal to prescribe any further pain medications and possible dismissal from our practice. Your wound and/or dressing should remain clean and dry for 2 days after surgery. On postoperative day 2 (48 hours after your surgery) the dressing (if present) should be removed and it is okay to shower and get the incision wet. Pad dry afterwards. No further dressing should be required from that point on. Do not put any creams or ointments on theincision > It is normal for there to be a small amount of discharge (bloody or blood tinged) present from a surgical wound for the first 1-3days. > The wound should be examined twice a day for signs of infection. Mild redness or bruising is to be expected but indications that an infection maybe starting would include; An increase in redness, swelling, or discharge, a foul odor present around the incision, and/or a fever greater than 101 ?F ? Showering is permitted, however we ask that you do not take a bath, sit in a whirlpool / Jacuzzi, or go swimming for 1 month. For only the first 2 days after surgery, lt will be necessary for you to cover your wound/dressing with plastic and tape to keep it dry. ? Walking is essential for the healing process after surgery. We would like you to slowly advance your walking. This should be done on relatively flat clear ground (inside or out) or can be done on a treadmill. Remember this goal does not have to happen all at once, slowly increase your distance and duration. This can be broken into more more than one walk per day as tolerated. Patients who walk as directed after surgery rarely require Physical Therapy. In the unlikely event this issue arises your provider will direct hospital staff to make the appropriate arrangements. ? No lifting over 5 pounds {a gallon of milk) or bending/twisting until further notice. Each of these activities places an unnecessary amount of stress onto the body and can impede the delicate healing process. > Instead of bending at the waist, keep your back straight and bend at the knees. > Instead of twisting your torso, keep your back straight and turn your entire body with your feet. ? You may sleep in any position which makes you comfortable. Many patients find comfort sleeping in a reclining chair. It is not abnormal to have difficulty sleeping for the first several weeks following your surgery. We recommend trying Benadry! or Tylenol PM as directed to help with your sleeping difficulties. Both medications are over the counter and available without prescription. ? NO SMOKING!!! Smoking dramatically increases the probability of developing postoperative wound infections. ? Common complaints after lumbar and/or thoracic spine surgery include, but are not limited to: numbness and/or tingling in the legs, pain around the incision and surrounding tissues, muscle spasms, or stiffness of the middle to low back. Contact our office if these symptoms persist or if an acute change occurs. ? No driving for the first 3-5days, and not while taking narcotics until seen at your follow-up appointment and cleared. There are no restrictions for riding on short trips, however if you take a longer trip, arrangements should be made to make regular stops to get out of the vehicle and stretch . ? Swelling is an unfortunate event that will take place with any surgery and is the primary source of your postoperative discomfort. While walking and regular approved activities helps control inflammation, there are additional steps you can take to minimizeswelling. > Place ice over the surgical site and surrounding tissue for twenty minutes, followed by applying a low/medium heat (heating pad) for an additional twenty minutes every 1-2 hours as needed for painrelief. > You may use of over the counter anti-inflammatory medications (Ibuprofen, Motrin, Aleve, Advil, etc) as directed on the package label. These types of medicines wm significantly reduce the amount of discomfort you experience after surgery from swelling. It should be noted that if you have and allergy to any of these medications, or a history of ulcers or kidney disease you should consult you primary care provider prior to starting these medications. Discharge Attestations Time Spent in Discharge Care*: less than 30 min Quality Metrics Clinical Quality Measures [ No reported AMI, CVA or VTE this stay] Coding Level of Care Code Acute Chg JANETH JAIME note Diagnoses Spinal epidural hematoma
[2022-01-26 10:50] VITALS: BP 132/74; PULSE 65; RESP 17; TEMP 36.6; O2SAT 97
--- NOTE | 2022-01-26 11:48 | PC.NURSE ---
Discussed discharge with patient. Follow up appointment and possible wound infection with patient. Verbalized understanding
[2022-01-26 11:49] VITALS: BP 132/74; PULSE 65; RESP 17; TEMP 36.6; O2SAT 97
== END 2022-01-26 11:51 | disposition home or self-care (01) | DRG 909 ==
LOC: ER 15:35 → MEDSURG 16:17
PROVIDERS: Physician Assistant; Admitting Provider Orthopaedic Surgery; Emergency Provider Family Medicine; PCP Family Medicine; Visit Provider Orthopaedic Surgery
PROC: 01NB0ZZ Release Lumbar Nerve, Open Approach (ICD-10-PCS; principal; 2022-01-24 10:30)
DX: M96.840 Postprocedural hematoma of a musculoskeletal structure following a musculoskeletal system procedure (principal); Z98.890 Other specified postprocedural states; Z79.891 Long term (current) use of opiate analgesic
CPT/HCPCS: 36415; 71045; 72158; 76000; 80048; 80053; 85025; 85610; 85730; 93005; 96365; 99285; A9577; J1100; J2250; J2270; J2405; J2704; J3010; J3370; J3490; J7030

== ENCOUNTER → 2022-02-01 13:35 | Outpatient (BNVA) | payer MEDICAID, SELFPAY | PROVIDERS: PCP Family Medicine; Visit Provider Physician Assistant | DX: Z47.89 Encounter for other orthopedic aftercare (principal); Z98.890 Other specified postprocedural states | CPT/HCPCS: 99024; 99999 ==

== ENCOUNTER → 2022-02-05 13:00 | Outpatient (BNVA) | payer MEDICAID, SELFPAY | PROVIDERS: PCP Family Medicine; Visit Provider Anesthesiology Pain Medicine | DX: M51.26 Other intervertebral disc displacement, lumbar region (principal); M47.816 Spondylosis without myelopathy or radiculopathy, lumbar region; M79.604 Pain in right leg; M79.605 Pain in left leg; Z98.890 Other specified postprocedural states; Z79.891 Long term (current) use of opiate analgesic | CPT/HCPCS: 99205 ==

== ENCOUNTER → 2022-03-05 12:41 | Outpatient (BNVA) | payer MEDICAID, SELFPAY | PROVIDERS: PCP Family Medicine; Visit Provider Anesthesiology Pain Medicine | DX: M51.26 Other intervertebral disc displacement, lumbar region (principal); M47.816 Spondylosis without myelopathy or radiculopathy, lumbar region; M79.604 Pain in right leg; M79.605 Pain in left leg; Z98.890 Other specified postprocedural states; Z79.891 Long term (current) use of opiate analgesic | CPT/HCPCS: 99213 ==

== ENCOUNTER → 2022-03-08 13:47 | Outpatient (BNVA) | payer MEDICAID, SELFPAY | PROVIDERS: PCP Family Medicine; Visit Provider Physician Assistant | DX: Z47.89 Encounter for other orthopedic aftercare (principal); Z98.890 Other specified postprocedural states | CPT/HCPCS: 99024 ==

== ENCOUNTER → 2022-03-21 14:17 | Outpatient (BNVA) | payer MEDICAID, SELFPAY | PROVIDERS: PCP Family Medicine; Visit Provider Orthopaedic Surgery | DX: M16.12 Unilateral primary osteoarthritis, left hip (principal); M25.552 Pain in left hip | CPT/HCPCS: 73502; 99203 ==

== ENCOUNTER → 2022-04-05 13:14 | Outpatient (BNVA) | payer MEDICAID, SELFPAY | PROVIDERS: PCP Family Medicine; Visit Provider Anesthesiology Pain Medicine | DX: M51.26 Other intervertebral disc displacement, lumbar region (principal); M47.816 Spondylosis without myelopathy or radiculopathy, lumbar region; M16.12 Unilateral primary osteoarthritis, left hip; M79.604 Pain in right leg; M79.605 Pain in left leg; Z98.890 Other specified postprocedural states | CPT/HCPCS: 99214 ==

== ENCOUNTER → 2022-05-01 13:00 | Outpatient (BNVA) | payer MEDICAID, SELFPAY | PROVIDERS: PCP Family Medicine; Visit Provider Anesthesiology Pain Medicine | DX: M16.12 Unilateral primary osteoarthritis, left hip (principal) | CPT/HCPCS: 20610; 77002; J1030; J3490 ==

== ENCOUNTER → 2022-05-15 09:08 | Outpatient (BNVA) | payer MEDICAID, SELFPAY | PROVIDERS: PCP Family Medicine; Visit Provider Anesthesiology Pain Medicine | DX: M79.604 Pain in right leg (principal); M79.605 Pain in left leg; Z98.890 Other specified postprocedural states; M51.26 Other intervertebral disc displacement, lumbar region; M47.816 Spondylosis without myelopathy or radiculopathy, lumbar region; M16.12 Unilateral primary osteoarthritis, left hip | CPT/HCPCS: 99214 ==

== ENCOUNTER → 2022-06-19 13:40 | Outpatient (BNVA) | payer MEDICAID, SELFPAY | PROVIDERS: PCP Family Medicine; Visit Provider Anesthesiology Pain Medicine | DX: M16.12 Unilateral primary osteoarthritis, left hip (principal); M79.604 Pain in right leg; M79.605 Pain in left leg; M51.26 Other intervertebral disc displacement, lumbar region; M47.816 Spondylosis without myelopathy or radiculopathy, lumbar region; Z98.890 Other specified postprocedural states | CPT/HCPCS: 99214 ==

== ENCOUNTER → 2022-11-01 15:45 | Outpatient (BNVA) | payer MEDICAID, SELFPAY | PROVIDERS: PCP Family Medicine; Visit Provider Physician Assistant | DX: M47.816 Spondylosis without myelopathy or radiculopathy, lumbar region (principal); Z98.890 Other specified postprocedural states; M79.604 Pain in right leg; M79.605 Pain in left leg | CPT/HCPCS: 72100; 99213 ==

== ENCOUNTER 2022-11-19 13:29 | Outpatient (CLI) | payer MEDICAID, SELFPAY ==
--- NOTE | 2022-11-19 13:45 | MR_ITS ---
WS: [id number] MRI LUMBAR SPINE NONCONTRAST HISTORY: Low back pain increasing, recent surgery 01/17/2022. COMPARISON: 01/23/2022 TECHNIQUE: Sagittal and axial multisequence imaging is submitted. Laminectomy defects at L3-4 and L4-5. Postoperative edema and blood products previously described at the L3-4 and L4-5 levels resolved. Mild straightening of the normal lumbar lordosis. Mild disc space narrowing and desiccation throughout the lumbar spine. Conus terminates normally at L1. L1-L2: Normal. L2-L3: Mild disc bulging with ligamentum flavum hypertrophy and facet arthritis. Mild central stenosi s. Mild LEFT foraminal stenosis is unchanged. L3-L4: Large laminectomy defect. Diffuse annular disc bulging with marked facet joint arthritis. Prev ious the described disc extrusion extending posterior to L3 has resolved. There is a new LEFT foramin al disc protrusion causing complete effacement of fat and contacts the LEFT L3 nerve root. Mild RIGHT foraminal stenosis. L4-L5: Mild annular disc bulging with facet and ligamentum flavum arthritis. Moderate RIGHT foraminal stenosis and mild on the LEFT. Significant encroachment upon the exiting RIGHT L4 nerve root. L5-S1: Mild annular disc bulging with ligamentum flavum and facet arthritis. Paravertebral soft tissues are unchanged. MR/MR lumbar spine wo con* [id number] IMPRESSION: 1. Prior decompression laminectomy defects at L3-4 and L4-5. 2. Encroachment upon the thecal sac and the cauda equina and nerve rootlets de scribed on the prior study has resolved with improving postsurgical changes. 3. Central disc extrusion at L3-4 as resolved. 4. New LEFT foraminal disc protrusion at L3-4 with complete effacement of fora yesenia fat and severe stenosis. 5. Moderate RIGHT foraminal stenosis at L4-5 with progression since the prior study. Significant encroachment upon the RIGHT L4 nerve root. 6. Mild LEFT foraminal stenosis at L2-3.
== END 2022-11-19 13:30 | disposition home or self-care (01) ==
LOC: RAD 13:32
PROVIDERS: PCP Family Medicine; Visit Provider Physician Assistant
DX: Z98.890 Other specified postprocedural states (principal); M48.061 Spinal stenosis, lumbar region without neurogenic claudication; M51.26 Other intervertebral disc displacement, lumbar region; M96.1 Postlaminectomy syndrome, not elsewhere classified
CPT/HCPCS: 72148

== ENCOUNTER → 2022-11-22 15:29 | Outpatient (BNVA) | payer MEDICAID, SELFPAY | PROVIDERS: PCP Family Medicine; Visit Provider Physician Assistant | DX: M16.12 Unilateral primary osteoarthritis, left hip (principal); M47.816 Spondylosis without myelopathy or radiculopathy, lumbar region; Z98.890 Other specified postprocedural states | CPT/HCPCS: 99213 ==

== ENCOUNTER → 2023-04-29 10:13 | Outpatient (BNVA) | payer MEDICAID, SELFPAY | PROVIDERS: PCP Family Medicine; Visit Provider Anesthesiology Pain Medicine | DX: M51.26 Other intervertebral disc displacement, lumbar region (principal); M47.816 Spondylosis without myelopathy or radiculopathy, lumbar region; M79.604 Pain in right leg; M79.605 Pain in left leg; M16.12 Unilateral primary osteoarthritis, left hip; Z98.890 Other specified postprocedural states | CPT/HCPCS: 99214 ==

== ENCOUNTER → 2023-05-08 13:59 | Outpatient (BNVA) | payer MEDICAID, SELFPAY | PROVIDERS: PCP Family Medicine; Visit Provider Specialist | DX: M16.12 Unilateral primary osteoarthritis, left hip (principal); M47.816 Spondylosis without myelopathy or radiculopathy, lumbar region; M51.26 Other intervertebral disc displacement, lumbar region; Z98.890 Other specified postprocedural states | CPT/HCPCS: 20610; 73502; 77002; 99204; J1030; J3490 ==

== ENCOUNTER 2023-05-21 13:58 | Outpatient (CLI) | payer MEDICAID, SELFPAY ==
--- NOTE | 2023-05-21 14:30 | MR_ITS ---
WS: [id number] EXAMINATION: MR hip LT wo con* [id number] ORDER DATE: 05/21/2023 2:11 PM COMPARISON: 05/08/2023 HISTORY: left hip pain CONTRAST: None. TECHNIQUE: Coronal STIR of the Pelvis. Coronal proton density, coronal T1, axial T2 fat sat, axial T1 , sagittal T2 fat sat, and sagittal T1 performed of the hip. FINDINGS: Advanced degenerative arthritis both hips with [id number] articulation and hypertrophic changes abo ut the femoral necks and acetabulum. Diffuse edema involving the bilateral femoral heads and necks in volving the anterior superior femoral heads and abutting acetabulum bilaterally. [id number] articul ation. Subchondral cystic change involving the left femoral head with mild flattening and serpiginous low signal changes compatible with avascular necrosis. Similar findings involving the right hip alth ough slightly less severe. Paralabral cysts involving the left anterior superior labrum. Normal bone marrow signal involving the sacrum and bony pelvis. Normal pubic rami. Diffuse bladder wa ll thickening. Proximal femoral shafts are normal. IMPRESSION: 1. Advanced arthritis both hips with [id number] articulation. 2. Diffuse edema involving the left femoral head and neck with subchondral cystic changes and mild f lattening with findings compatible with avascular necrosis. Similar-appearing findings involving the right femoral head. 3. Small paralabral cysts left hip described above. 4. Normal bone marrow signal involving the sacrum and bony pelvis.
== END 2023-05-21 13:59 | disposition home or self-care (01) ==
LOC: RAD 14:00
PROVIDERS: PCP Family Medicine; Visit Provider Specialist
DX: M16.0 Bilateral primary osteoarthritis of hip (principal); R60.0 Localized edema; M24.852 Other specific joint derangements of left hip, not elsewhere classified; R93.7 Abnormal findings on diagnostic imaging of other parts of musculoskeletal system
CPT/HCPCS: 73721

== ENCOUNTER → 2023-05-29 10:08 | Outpatient (BNVA) | payer MEDICAID, SELFPAY | PROVIDERS: PCP Family Medicine; Visit Provider Anesthesiology Pain Medicine | DX: M79.604 Pain in right leg; M79.605 Pain in left leg; Z98.890 Other specified postprocedural states; M51.26 Other intervertebral disc displacement, lumbar region; M47.816 Spondylosis without myelopathy or radiculopathy, lumbar region; M16.12 Unilateral primary osteoarthritis, left hip | CPT/HCPCS: 99213; 99214 ==

== ENCOUNTER 2023-06-05 07:38 | Emergency (ER) | payer MEDICAID, SELFPAY ==
--- NOTE | 2023-06-05 07:47 | W.ED.BACK ---
HPI - Back Pain/Injury General: Chief Complaint: Back Pain/Injury Stated Complaint: back pain, body numbness Time Seen by Provider: 06/05/23 07:46 Source: patient Mode of arrival: ambulatory History of Present Illness: 62-year-old male presents emergency room complaining of bilateral arm weakness and numbness. Patient has had lumbar surgery in the past for laminectomy and then had a revision due to spinal cord hematoma. He has some persistent saddle paresthesias that have kind of waxed and waned since then he has not had any recent change in symptoms no fecal incontinence or urinary retention. MD elicited complaint: back pain Pertinent past history: prior back pain Onset (ago): hour(s) Timing: constant Severity: moderate Quality: tingling Radiation: other (Bilateral upper extremities) Associated symptoms: Deny abdominal pain, chills, dysuria, fatigue, fever(s), nausea, urinary urgency or vomiting Review of Systems Const: Denies: fever(s), chills, fatigue or malaise Card: Denies: chest pain, edema, dyspnea on exertion or orthopnea Resp: Denies: dyspnea, productive cough or non-productive cough GI: Denies: abdominal pain, nausea, vomiting, hematemesis, coffee ground emesis, diarrhea, constipation, bloating, hematochezia or melena : Denies: flank pain, dysuria, urinary frequency or urinary urgency Musc: Reports: neck pain Skin/Breast: Denies: rash or pruritus PFS ED PFSH: Medical History Hypertension Neuropathy Right leg numbness Surgical History History of appendectomy Family History Other Hypertension Denies family history of Diabetes CAD (coronary artery disease) Social History Smoking and tobacco status: never smoked Alcohol intake: former Substance/Drug Use: former Physical Exam Const: GENERAL APPEARANCE: cooperative and comfortable ORIENTATION/CONSCIOUSNESS: Yes awake, Yes oriented to person, Yes oriented to place and Yes oriented to time HENMT: COMMON NORMALS: normocephalic, atraumatic and hearing grossly normal bilaterally HEAD & SCALP: normocephalic and atraumatic Resp: COMMON NORMALS: normal respiratory effort, No retractions, No use of accessory muscles and clear to auscultation bilaterally AUSCULTATION: clear to auscultation bilaterally Cardio: COMMON NORMALS: regular rate, regular rhythm and No murmurs present (Cardio) RATE: regular rate RHYTHM: regular rhythm GI: COMMON NORMALS: Soft to palpation and No hepatosplenomegaly present AUSCULTATION: Yes normoactive bowel sounds PALPATION: Yes Soft to palpation, No Tenderness to palpation present (GI), No Guarding due to palpation present (GI) and Yes No hepatosplenomegaly present Extremity: COMMON NORMALS: normal to inspection, capillary refill normal, no clubbing, cyanosis or edema, no calf tenderness and no pedal edema Neuro: SENSORIUM/ORIENTATION: Yes oriented to person, Yes oriented to place and Yes oriented to time Skin: COMMON NORMALS: no rashes or lesions noted GENERAL SKIN EXAM: no rashes or lesions noted Course Vital Signs: Vital signs: Vital Signs Temperature 98.1 F 06/05/23 07:54 Pulse Rate 47 L 06/05/23 10:08 Respiratory Rate 17 06/05/23 10:08 Blood Pressure 162/101 06/05/23 10:08 Pulse Oximetry 97 06/05/23 10:08 Oxygen Delivery Me thod Room Air 06/05/23 10:08 MDM - Back Pain/Injury Medical Decision Making CT of the neck reviewed. His overdose of the and foraminal stenosis. Think that is what is causing his arm radiculopathy. No other deficits at this time we will discharge patient home refer to orthopedic spine surgery and will also ask case management to make arrangements for outpatient MRI of the neck. Medical Records I reviewed the patient's medical records. Labs I reviewed the patient's lab results. Discharge Plan Discharge Patient Disposition: Home Clinical Impression: Cervical radiculopathy due to degenerative joint disease of spine Condition: Stable Prescriptions: New tizanidine 4 mg tablet 4 mg PO Q6H PRN (Reason: muscle spasticity) Qty: 20 0RF Rx Instructions: do not exceed 3 doses per 24 hrs prednisone 20 mg tablet 20 mg PO TID Qty: 15 0RF Rx Instructions: 1 p.o. 3 times daily x3 days, 1 p.o. twice daily x2 days, 1 p.o. daily x2 days diclofenac sodium 75 mg tablet,delayed release (DR/EC) 75 mg PO Q12H PRN (Reason: pain) Qty: 20 0RF Discontinued naproxen sodium [Aleve] 220 mg Capsule 880 mg PO Q8H PRN (Reason: Pain) No Action hemp flower See Rx Instructions .ROUTE .COMPLEX Rx Instructions: as directed gabapentin 300 mg capsule 300 mg PO TID Qty: 90 0RF lisinopril 20 mg tablet 20 mg PO DAILY acetaminophen 325 mg Tablet 650 mg PO QID PRN (Reason: Pain) Discharge Orders: Discharge ED (Routine); Ordered 06/05/23 Ordered By: Nik Liz Referrals: Mauricio Gasca [Primary Care Provider] - Discharge Diet: Usual diet Discharge Activity: Limit activity as instructed Patient Instructions: Opioid Safety, Pain Management Activity Restrictions/Additional Instructions: Call Dr. Doe's office to set up a follow-up appointment regarding your neck. Case management will make arrangements for an MRI of the neck. Coding Level of Care Code ED Glove Former for Hazel Lopez
[2023-06-05 07:54] VITALS: BP 178/97; PULSE 52; TEMP 36.7; O2SAT 98; BMI 31.3
--- NOTE | 2023-06-05 08:19 | CT_ITS ---
WS: [id number] CT CERVICAL SPINE TECHNIQUE: Noncontrast CT of the cervical spine with coronal and sagittal reformatted images. CLINICAL INFORMATION: arm radiculopathy COMPARISON: None. DLP: 206.[address] scans at [facility] use at least one of these dose optimization techniques: automated e xposure control; mA and/or kV adjustment per patient size (includes targeted exams where dose is matc hed to clinical indication); or iterative reconstruction. FINDINGS: Moderate spondylitic changes cervical spine. Straightening of the normal cervical lordosis. Slight an terolisthesis C3 on C4 and C4 on C5. Disc osteophyte complexes worse at C5-C6 and C6-C7 with osteophy tic ridging. Mild to moderate central canal stenosis C5-C6 and moderate central canal stenosis C6-7. C2-C3: Normal. C3-C4: Mild facet arthropathy. Spinal canal and foramen are patent. C4-C5: Mild disc osteophytic ridging. Mild facet arthropathy. Spinal canal and foramen are patent. C5-C6: Disc osteophyte complex with endplate ridging. Moderate to severe bilateral bony foraminal liz rowing with facet arthropathy and uncovertebral joint hypertrophy worse on the LEFT. Mild to moderate central canal stenosis. C6-C7: Disc osteophyte complex with moderate central canal stenosis. Severe LEFT and mild to moderate RIGHT bony foraminal narrowing. C7-T1: Spinal canal appears patent. Mild LEFT and no significant RIGHT foraminal narrowing. Polypoid mucosal thickening in the RIGHT maxillary sinus. Mastoid air cells are well aerated. Normal posterior nasopharynx and parapharyngeal fat. IMPRESSION: 1. Mild to moderate central canal stenosis C5-C6 and moderate C6-C7 due to disc osteophyte complexes with slight contact and indentation on the cervical cord. 2. Moderate to severe LEFT C5-C6 and LEFT C6-7 bony foraminal narrowing. Moderate to severe RIGHT C5 -6 bony foraminal narrowing. 3. Straightening of the normal cervical lordosis with moderate spondylitic changes. Slight anterolis thesis C2 on C3 and C3 on C4. 4. Findings could be followed up with cervical spine MRI
[2023-06-05] MEDS: dexamethasone 10 mg/mL INJ IVP (09:05)
[2023-06-05] MEDS: ketorolac 60 mg/2 mL INJ IM (09:05)
[2023-06-05] MEDS: orphenadrine 30 mg/mL Inj 2 mL 60 MG IVP (09:05)
[2023-06-05 09:17] VITALS: BP 201/98; PULSE 50; RESP 16; O2SAT 98
[2023-06-05 10:08] VITALS: BP 162/101; PULSE 47; RESP 17; O2SAT 97
--- NOTE | 2023-06-06 15:22 | DCPLANNER ---
Addendum entered by Jessie Amezcua 06/12/23 12:36: Patient has a followup appointment scheduled for Saturday, July 03, 2023 at 1:45 for an outpatient cervical spine MRI. Original Note: veneer department manager had message to schedule an outpatient MRI for patient. veneer department manager faxed signed order to centralized scheduling, who will call patient with appointment information.
== END 2023-06-05 10:27 | disposition home or self-care (01) ==
PROVIDERS: Emergency Provider Family Medicine; PCP Family Medicine
DX: M47.22 Other spondylosis with radiculopathy, cervical region (principal); I10 Essential (primary) hypertension
CPT/HCPCS: 72125; 96372; 96374; 96375; 99285; J1100; J1885; J2360

== ENCOUNTER → 2023-06-13 14:04 | Outpatient (BNVA) | payer MEDICAID, SELFPAY | PROVIDERS: PCP Family Medicine; Visit Provider Anesthesiology Pain Medicine | DX: M16.11 Unilateral primary osteoarthritis, right hip | CPT/HCPCS: 20610; 77002; J1030; J3490 ==

== ENCOUNTER → 2023-06-18 14:40 | Outpatient (BNVA) | payer MEDICAID, SELFPAY | PROVIDERS: PCP Family Medicine; Visit Provider Orthopaedic Surgery | DX: M47.816 Spondylosis without myelopathy or radiculopathy, lumbar region (principal); M79.604 Pain in right leg; M79.605 Pain in left leg; Z98.890 Other specified postprocedural states | CPT/HCPCS: 72100; 99214 ==

== ENCOUNTER 2023-06-24 08:44 | Emergency (ER) | payer MEDICAID, SELFPAY ==
[2023-06-24 08:49] VITALS: BP 192/89; PULSE 89; RESP 18; TEMP 36.6; O2SAT 97; BMI 31.1
[2023-06-24] MEDS: dexamethasone 10 mg/mL INJ IM (09:11)
[2023-06-24] MEDS: orphenadrine 30 mg/mL Inj 2 mL 60 MG IM (09:16)
[2023-06-24] MEDS: ketorolac 60 mg/2 mL INJ IM (09:16)
--- NOTE | 2023-06-24 09:31 | W.ED.BACK ---
HPI - Back Pain/Injury General: Chief Complaint: Back Pain/Injury Stated Complaint: back pain Time Seen by Provider: 06/24/23 08:47 Source: patient Mode of arrival: ambulatory History of Present Illness: 62-year-old male presents emergency room with complaint of back pain. We did seen him a couple weeks ago at that time he had more neck pain and a CT of his neck showed some concerning findings he was referred back to orthopedic spine surgery they have scheduled for an MRI of the neck and lumbar spine he has been beginning to have worsening low back pain with discomfort radiating into the left buttock he denies any saddle paresthesias no urinary retention or fecal incontinence. Symptoms precipitated after patient had leaned over to cook pickled meat something off of the floor is a small inconsequential hiatal but when he would stand out he had severe spasm and now is having continuing pain. He is currently on tizanidine and diclofenac for his pain which until this exacerbation seem to be working well MD elicited complaint: back pain Pertinent past history: prior back pain Onset (ago): minute(s) Timing: constant Severity: moderate Quality: sharp Location: lumbar spine Associated symptoms: Deny abdominal pain, arthralgias, chills, change in bowel habits, difficulty walking, dysuria, fatigue, fecal incontinence, fever(s), hematuria, myalgias, nausea, numbness, syncope, tingling/numbness/burning, urinary frequency, urinary urgency, vomiting or weakness Review of Systems Const: Denies: fever(s), chills or fatigue ENMT: Denies: throat pain, ear or mastoid pain, nasal discharge or nasal congestion Card: Denies: syncope Resp: Denies: dyspnea, productive cough or non-productive cough GI: Denies: abdominal pain, nausea, vomiting, fecal incontinence or change in bowel habits : Denies: flank pain, dysuria, urinary frequency, urinary urgency, difficulty starting urination or hematuria Skin/Breast: Denies: rash or pruritus Neuro: Denies: difficulty walking PFSH ED PFSH: Medical History Hypertension Neuropathy Right leg numbness Surgical History History of appendectomy Family History Other Hypertension Denies family history of Diabetes CAD (coronary artery disease) Social History Smoking and tobacco status: never smoked Alcohol intake: former Substance/Drug Use: former Physical Exam Const: GENERAL APPEARANCE: cooperative and comfortable ORIENTATION/CONSCIOUSNESS: Yes awake, Yes oriented to person, Yes oriented to place and Yes oriented to time HENMT: COMMON NORMALS: normocephalic, atraumatic and hearing grossly normal bilaterally HEAD & SCALP: normocephalic and atraumatic Resp: COMMON NORMALS: normal respiratory effort, No retractions, No use of accessory muscles and clear to auscultation bilaterally AUSCULTATION: clear to auscultation bilaterally Cardio: COMMON NORMALS: regular rate, regular rhythm and No murmurs present (Cardio) RATE: regular rate RHYTHM: regular rhythm GI: COMMON NORMALS: Soft to palpation and No hepatosplenomegaly present AUSCULTATION: Yes normoactive bowel sounds PALPATION: Yes Soft to palpation, No Tenderness to palpation present (GI), No Guarding due to palpation present (GI) and Yes No hepatosplenomegaly present Extremity: COMMON NORMALS: normal to inspection, capillary refill normal, no clubbing, cyanosis or edema, no calf tenderness and no pedal edema Neuro: SENSORIUM/ORIENTATION: Yes oriented to person, Yes oriented to place and Yes oriented to time Skin: COMMON NORMALS: no rashes or lesions noted GENERAL SKIN EXAM: no rashes or lesions noted Course Vital Signs: Vital signs: Vital Signs Temperature 97.9 F 06/24/23 08:49 Pulse Rate 52 L 06/24/23 10:20 Respiratory Rate 16 06/24/23 10:20 Blood Pressure 165/93 06/24/23 10:20 Pulse Oximetry 99 06/24/23 10:20 MDM - Back Pain/Injury Medical Decision Making Strain lumbar region with no focal neurologic deficits. No red flag symptoms. Will place patient on steroid taper. Continue other pain medications anti-inflammatories continue tizanidine he is feeling much better after medications given in the emergency room follow-up with outpatient orthopedic spine surgery return if is worsening problems. Medical Records I reviewed the patient's medical records. Labs I reviewed the patient's lab results. Discharge Plan Discharge Patient Disposition: Home Clinical Impression: Strain of lumbar region Condition: Stable Prescriptions: New prednisone 20 mg tablet 20 mg PO TID Qty: 15 0RF Rx Instructions: 1 p.o. 3 times daily x3 days, 1 p.o. twice daily x2 days, 1 p.o. daily x2 days No Action hemp flower See Rx Instructions .ROUTE .COMPLEX Rx Instructions: as directed gabapentin 300 mg capsule 300 mg PO TID Qty: 90 0RF bupivacaine (PF) 0.25 % (2.5 mg/mL) solution 5 ml intra-articular ONCE Qty: 1 0RF diclofenac sodium 75 mg tablet,delayed release (DR/EC) 75 mg PO Q12H PRN (Reason: pain) Qty: 30 0RF tizanidine 4 mg tablet 4 mg PO TID PRN (Reason: muscle spasticity) Qty: 90 0RF Rx Instructions: do not exceed 3 doses per 24 hrs lisinopril 20 mg tablet 20 mg PO DAILY acetaminophen 325 mg Tablet 650 mg PO QID PRN (Reason: Pain) prednisone 20 mg tablet 20 mg PO TID Qty: 15 0RF Rx Instructions: 1 p.o. 3 times daily x3 days, 1 p.o. twice daily x2 days, 1 p.o. daily x2 days Discharge Orders: Discharge ED (Routine); Ordered 06/24/23 Ordered By: Nik Liz Referrals: Mauricio Gasca [Primary Care Provider] - Patient Instructions: Acute Low Back Pain (ED), Lower Back Exercises (ED), Opioid Safety, Pain Management Activity Restrictions/Additional Instructions: Continue tizanidine and diclofenac as previously prescribed. Start oral steroids tomorrow. Follow-up with orthopedic clinic as scheduled. 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
[2023-06-24 10:20] VITALS: BP 165/93; PULSE 52; RESP 16; O2SAT 99
== END 2023-06-24 10:21 | disposition home or self-care (01) ==
PROVIDERS: Emergency Provider Family Medicine; PCP Family Medicine
DX: S39.012A Strain of muscle, fascia and tendon of lower back, initial encounter (principal); I10 Essential (primary) hypertension; X50.1XXA Overexertion from prolonged static or awkward postures, initial encounter
CPT/HCPCS: 96372; 99284; J1100; J1885; J2360

== ENCOUNTER 2023-07-10 06:54 | Outpatient (CLI) | payer MEDICAID, SELFPAY ==
--- NOTE | 2023-07-10 | MR_ITS ---
WS: [id number] MRI CERVICAL SPINE NONCONTRAST TECHNIQUE: Sagittal T1, T2 and STIR imaging. Axial T2, gradient, and fiesta imaging. CLINICAL INFORMATION: CERVICAL DISC DISEASE COMPARISON: CT cervical 06/05/2023 FINDINGS: Straightening normal cervical lordosis. Small disc protrusions C5-C6 and C6-C7. Cord signal is normal . C2-C3: Normal. C3-C4: Tiny central disc protrusion. Spinal canal and foramina are patent. Mild facet arthropathy. C4-C5: Mild disc osteophyte complex with endplate ridging. Mild facet arthropathy. Mild LEFT bony for aminal narrowing. C5-C6: Disc osteophyte complex with mild to moderate central canal stenosis. Moderate to severe bilat eral bony foraminal narrowing. Uncovertebral joint hypertrophy. Mild facet arthropathy. C6-C7: Disc osteophyte complex with mild to moderate central canal stenosis. Moderate to severe bilat eral bony foraminal narrowing. Mild facet arthropathy with uncovertebral joint hypertrophy. C7-T1: Disc osteophyte complex with endplate ridging eccentric to the LEFT. Mild to moderate LEFT and mild RIGHT bony foraminal narrowing. Spinal canal is patent. Visualized brain stem structures: Normal. Prevertebral soft tissues: Normal. IMPRESSION: 1. Straightening of the normal cervical lordosis. Cord signal is normal. 2. Mild to moderate central canal stenosis C5-C6 and C6-C7 with disc osteophyte complexes and small central protrusions. Slight indentation on the cervical cord. 3. Moderate to severe bilateral bony foraminal narrowing C5-C6 and C6-C7 worse on the LEFT. 4. Mild to moderate LEFT C7-T1 bony foraminal narrowing.
--- NOTE | 2023-07-10 07:15 | MR_ITS ---
WS: [id number] MRI LUMBAR SPINE NONCONTRAST TECHNIQUE: Sagittal T1, T2 and STIR imaging. Axial T1 and T2 imaging. CLINICAL INFORMATION: low back pain COMPARISON: MRI 11/19/2022 FINDINGS: Mild lumbar curve. No acute compression. Prior postoperative changes laminectomy defects L3-L4 and L4 -L5. L1-L2: Mild facet arthropathy. Spinal canal and foramen are patent. L2-L3: Mild annular bulging. Narrowing of the LEFT subarticular recess. Moderate facet arthropathy. M ild LEFT greater than RIGHT foraminal narrowing. L3-L4: Laminectomy defects. Moderate facet arthropathy. Spinal canal is patent. LEFT foraminal protru syed with severe LEFT foraminal narrowing and impingement on the exiting LEFT L3 nerve root unchanged . Mild RIGHT foraminal narrowing. L4-L5: Mild annular bulging. Slight narrowing of the RIGHT subarticular recess. Laminectomy defects. Moderate facet arthropathy. Spinal canal is patent. Mild RIGHT foraminal narrowing. L5-S1: Tiny central disc protrusion. Mild facet arthropathy. Spinal canal and foramen are patent. RIGHT renal atrophy. Visualized pelvic bony structures: Normal. Paravertebral soft tissues: Normal. IMPRESSION: 1. Prior postoperative changes laminectomy defects L3-L4 and L4-L5 unchanged. 2. Severe LEFT L3-4 foraminal narrowing with a LEFT foraminal protrusion impinges the exiting LEFT L 3 nerve root unchanged. 3. No recurrent central canal stenosis. Spinal canal is patent at L3-L4 and L4-L5. 4. Tiny RIGHT paracentral protrusion L5-S1 slightly encroaches on the RIGHT S1 nerve root unchanged. 5. Mild to moderate RIGHT L4-5 foraminal narrowing with slight narrowing RIGHT subarticular recess unchanged. 6. Mild LEFT foraminal narrowing L2-3 is stable.
== END 2023-07-10 06:55 | disposition home or self-care (01) ==
PROVIDERS: PCP Family Medicine; Visit Provider Family Medicine
DX: M47.816 Spondylosis without myelopathy or radiculopathy, lumbar region (principal); M79.604 Pain in right leg; M79.605 Pain in left leg; M48.061 Spinal stenosis, lumbar region without neurogenic claudication; M50.90 Cervical disc disorder, unspecified, unspecified cervical region; M48.02 Spinal stenosis, cervical region; M25.78 Osteophyte, vertebrae; Z98.890 Other specified postprocedural states
CPT/HCPCS: 72141; 72148

== ENCOUNTER → 2023-07-11 10:45 | Outpatient (BNVA) | payer MEDICAID, SELFPAY | PROVIDERS: PCP Family Medicine; Visit Provider Anesthesiology Pain Medicine | DX: M79.604 Pain in right leg; M79.605 Pain in left leg; Z98.890 Other specified postprocedural states; M51.26 Other intervertebral disc displacement, lumbar region; M47.816 Spondylosis without myelopathy or radiculopathy, lumbar region; M16.12 Unilateral primary osteoarthritis, left hip | CPT/HCPCS: 99214 ==

== ENCOUNTER → 2023-07-17 14:22 | Outpatient (BNVA) | payer MEDICAID, SELFPAY | PROVIDERS: PCP Family Medicine; Visit Provider Anesthesiology Pain Medicine | DX: M16.12 Unilateral primary osteoarthritis, left hip (principal) | CPT/HCPCS: 20610; 77002; J1030; J3490 ==

== ENCOUNTER → 2023-07-22 08:55 | Outpatient (BNVA) | payer MEDICAID, SELFPAY | PROVIDERS: PCP Family Medicine; Visit Provider Specialist | DX: M16.12 Unilateral primary osteoarthritis, left hip (principal) | CPT/HCPCS: 99213 ==

== ENCOUNTER → 2023-07-25 14:26 | Outpatient (BNVA) | payer MEDICAID, SELFPAY | PROVIDERS: PCP Family Medicine; Visit Provider Orthopaedic Surgery | DX: M51.9 Unspecified thoracic, thoracolumbar and lumbosacral intervertebral disc disorder (principal); M53.3 Sacrococcygeal disorders, not elsewhere classified | CPT/HCPCS: 99214 ==

== ENCOUNTER → 2023-08-15 08:42 | Outpatient (BNVA) | payer MEDICAID, SELFPAY | PROVIDERS: PCP Family Medicine; Visit Provider Anesthesiology Pain Medicine | DX: M79.604 Pain in right leg; M79.605 Pain in left leg; Z98.890 Other specified postprocedural states; M51.26 Other intervertebral disc displacement, lumbar region; M47.816 Spondylosis without myelopathy or radiculopathy, lumbar region; M16.12 Unilateral primary osteoarthritis, left hip | CPT/HCPCS: 99214 ==

== ENCOUNTER → 2023-08-28 14:28 | Outpatient (BNVA) | payer MEDICAID, SELFPAY | PROVIDERS: PCP Family Medicine; Visit Provider Anesthesiology Pain Medicine | DX: M46.1 Sacroiliitis, not elsewhere classified (principal); M54.50 Low back pain, unspecified; M79.604 Pain in right leg; M79.605 Pain in left leg | CPT/HCPCS: 20610; 27096; 77002; J1040; J3490 ==

== ENCOUNTER → 2023-09-12 12:53 | Outpatient (BNVA) | payer MEDICAID, SELFPAY | PROVIDERS: PCP Family Medicine; Visit Provider Orthopaedic Surgery | DX: Z98.890 Other specified postprocedural states (principal) | CPT/HCPCS: 72100; 99214 ==

== ENCOUNTER → 2023-09-23 14:40 | Outpatient (BNVA) | payer MEDICAID, SELFPAY | PROVIDERS: PCP Family Medicine; Visit Provider Specialist | DX: M16.0 Bilateral primary osteoarthritis of hip | CPT/HCPCS: 73502; 99214 ==

== ENCOUNTER → 2023-11-07 12:43 | Outpatient (BNVA) | payer MEDICAID, SELFPAY | PROVIDERS: PCP Family Medicine; Visit Provider Family Medicine | DX: Z01.818 Encounter for other preprocedural examination (principal) | CPT/HCPCS: 80053; 81003; 85025 ==

== ENCOUNTER → 2023-11-13 10:21 | Outpatient (BNVA) | payer MEDICAID, SELFPAY | PROVIDERS: PCP Family Medicine; Visit Provider Specialist | DX: M16.12 Unilateral primary osteoarthritis, left hip (principal) | CPT/HCPCS: 99213 ==

== ENCOUNTER 2023-11-28 16:01 | Observation (INO) | payer MEDICAID, SELFPAY ==
[2023-11-28] VITALS (14 sets, daily range): BP systolic 117–167; BP diastolic 74–94; PULSE 59–76; RESP 16–18; TEMP 36.1–36.6; O2SAT 91–100; BMI 30.4
[2023-11-28] MEDS: acetaminophen 1,000 MG/100 ML PIGGYBACK 400 MG IV ×2 (11:20→22:18)
[2023-11-28] MEDS: sodium chloride 0.9% 1,000 ML 30 ML IV (11:20)
[2023-11-28] MEDS: CELEcoxib 200 mg Capsule 400 MG PO (11:20)
[2023-11-28] MEDS: gabapentin 300 mg Capsule PO (11:20)
--- NOTE | 2023-11-28 11:20 | ANES.PREANE2 ---
Pre-Anesthetic Assessment Height/Weight: Height 1.83 m Weight 102 kg Temp Pulse Resp BP Pulse Ox O2 Del Method 97.7 F 62 16 163/94 97 Room Air 11/28/23 10:32 11/28/23 10:32 11/28/23 10:32 11/28/23 10:32 11/28/23 10:32 11/28/23 10:38 Operation Date: 11/28/23 12:25 Proposed Procedures p Left Total Hip Arthroplasty(Left) - Lia Moyer MD Familial anesthetic complications: none Was Beta Mara taken within 24 hours: N/A Was Clonidine taken within 24 hours: N/A Last intake: Intake Last Liquid Date 11/27/23 Last Liquid Time 18:00 Last Solid Date 11/27/23 Last Solid Time 18:00 Social No alcohol and No tobacco Exam alert, oriented x 3, clear to auscultation bilaterally and regular rate & rhythm Airway Submandibular: within normal limits Cervical ROM: within normal limits Mallampati: Class II Dentition: full CV/HEM Hypertension Metabolic Morbid Obesity Musc/skel Lower Back Pain and Osteoarthritis/DJD Neuropsych Neuropathy Anesthetic Plan ASA status: 3 Anesthesia: General and Regional (specify below) (Discussed postop fascia iliaca if difficult pain control.) Medications/Allergies Home Medications Medication Instructions Recorded Confirmed Last Taken Type lisinopril 20 mg tablet 20 mg PO BEDTIME 06/05/23 11/27/23 11/27/23 History cyclobenzaprine 10 mg tablet 10 mg PO TID PRN muscle spasms 11/13/23 11/27/23 11/20/23 History Allergies Allergy/AdvReac Type Severity Reaction Status Date / Time Penicillins Allergy itching Verified 11/13/23 11:18 [facility] Anesthesia Medical History Hypertension Neuropathy Right leg numbness Surgical History History of appendectomy Family History Other Hypertension Denies family history of Diabetes CAD (coronary artery disease) Social History Smoking and tobacco/nicotine status: never used tobacco/nicotine Alcohol intake: former Substance/Drug Use: former Data Anesthesia Cardiac Studies: No Data to Display
[2023-11-28] MEDS: fentaNYL 50 mcg/mL INJ 2mL IVP (11:30)
--- NOTE | 2023-11-28 11:33 | W.PM.OPSUD ---
Surgery/Procedure H&P Update DATE OF PROCEDURE: November 28, 2023 DATE H&P PERFORMED: 11/13/23 H&P UPDATE INFORMATION: I have reviewed H&P completed within last 30 days, I have examined patient prior to procedure, No changes to prior documentation and H&P is in [facility] EMR on date indicated PLANNED PROCEDURE: Operation Date: 11/28/23 12:25 Proposed Procedures p Left Total Hip Arthroplasty(Left) - Lia Moyer MD Related Problem List Diagnoses (1) Osteoarthritis of left hip: Qualifiers: Osteoarthritis type: primary Qualified Code(s): M16.12 - Unilateral primary osteoarthritis, left hip
[2023-11-28] MEDS: ondansetron 2 mg/ML SDV 2 mL 4 MG IVP ×2 (11:40→20:57)
[2023-11-28] MEDS: ceFAZolin 2,000 MG in sodium chloride 0.9% (plus) 50 ML 100 MG IV ×2 (11:55→20:40)
[2023-11-28] MEDS: tranexamic acid 1,000 mg/10mL SDV 1000 MG IV (12:33)
[2023-11-28] MEDS: vancomycin 1,000 MG SDV 2000 MG XX (12:44)
[2023-11-28] MEDS: lidocaine-epi 1% 20 mL INJ 15 ML INJECTION (14:47)
[2023-11-28] MEDS: BUPivacaine 0.5% INJ 30 mL 15 ML XX (14:47)
--- NOTE | 2023-11-28 15:01 | P.OP_ITS ---
Operative Report Date of procedure: November 28, 2023 Pre-op diagnosis: Severe degenerative osteoarthritis left hip with contracture Post-op diagnosis: Severe degenerative osteoarthritis left hip with contracture Post-op findings: Severe limitation in range of motion with large osteophytes Procedure done: Left total hip arthroplasty Implants: The Dl total hip system with a size 54 mm by E alpha code Trident II Tritanium acetabular shell with an MDM liner size 42 mm inner diameter by E alpha code.? A size 8 Accolade II 127? neck angle hip stem with a size 28 mm x +4 mm femoral head and a muslim MDM X3 insert size 28 mm x 42E with intramedullary Lyubov for hemostasis Specimens removed/disposition: Bone, disposed of Pathology: None Surgeon: Lia Moyer MD Manager Decision Support: Na Peña, nurse practitioner, who services were required for positioning, exposure, manipulation, retraction, and closure Anesthesia: General (Intubated, ASA 3) Estimated blood loss (mL): 1,000 IV fluids (mL): 2,250 (2000 crystalloid and 250 albumin) Urine output (mL): 325 Complications: None Findings: Severe degenerative osteoarthritis with large osteophytes and contractures about the hip. The patient was stable at 90 degrees of flexion with 80 degrees of internal rotation and 30 degrees of adduction. Toe hang was stable to approximately 60 degrees of flexion, and external rotation was stable. Condition: stable Disposition: PACU (Then to floor for postoperative rehabilitation and pain management) Brief History: This 63-year-old gentleman presents today for left total hip arthroplasty. The patient has failed conservative measures. He has significant collapse of the femoral head bilaterally, but it is worse on the left than the right. He was seen and evaluated in the office preoperatively, and after discussion, wished to proceed with total hip arthroplasty. Risks and complications were discussed, and consents were signed. Questions were answered. Procedure: Patient was brought to the operating theater.? He was transferred to the operating room table and subsequently administered a general anesthesia, intubated, ASA 3.? Following administration of adequate anesthesia, the patient was placed in full lateral position and held in position with a pegboard.? The patient's left lower extremity was then prepped and draped in usual fashion utilizing DuraPrep.? It was draped free.? Prepping and draping were both quite difficult secondary to the patient's significant contractures. Following prepping and draping, a surgical pause was performed.? At the time of surgical pause, we identified the site and side of surgery.? We also identified the patient and preoperative surgical markings.?The patient's operative leg was compared to the opposite leg as a length comparison.? Confirmation was made of equipment availability.? Additionally, the patient's preoperative IV antibiotic, Ancef 2 g, and TXA administration was confirmed as well.? X-rays were also reviewed. Following the surgical pause, an incision was made centering over the patient's greater trochanter continuing proximally and distally as necessary to allow acce ss to the hip joint.? Dissection continued through skin and soft tissues using a scalpel, and hemostasis was obtained using electrocautery. The tensor fascia hao was identified and incised longitudinally.? Sciatic nerve was identified and protected throughout the surgical procedure.? A Charnley U retractor was placed after the tensor fascia hao had been incised longitudinally, and the sciatic nerve had been identified.? The hip was internally rotated, and the piriformis muscle was identified and tagged. Piriformis muscle along with the remaining short external rotators were then incised from the posterior aspect of the hip joint.? These were retracted posteriorly.? The capsule was entered in a T-type fashion with the edges being tagged, and subsequently the hip was dislocated after removal of osteophytes posteriorly. A portion of the labrum was calcified, and this required removal with osteotome.? The labrum was excised with further excision accomplished once the femoral head was removed.? Following hip dislocation, a femoral neck osteotomy was accomplished in the appropriate position.? The head was measured, but it was quite deformed.? We then evaluated the acetabulum. The femur was retracted anteriorly.? Soft tissues were retracted, and the labrum was removed.? Labrum was noted to be quite large and deformed. We then began reaming.? Once the femoral head was removed, there was noted to be significant loss of cartilage over the head with the previously noted deformity and cartilage loss within the acetabulum.? We reamed to a size 53 to allow for a size 54 acetabular shell. The acetabulum was impacted into position.? The MDM liner was then impacted into position with care being taken to assure it seated appropriately. It was noted that the acetabulum matched the bony anatomy.? The cup was noted to seat nicely and had good fixation upon impact. Large osteophytes were removed from the posterior aspect of the acetabulum following cup insertion. Attention was directed to the proximal femur.? The proximal femur was lifted out of the wound.? A canal finder was passed after the box chisel.? The reamer was used to lateralize.? We then began broaching. We broached sequentially and had excellent fit and fill with the size 7 broach. ?Trial reduction was initially accomplished with a size [address]. The hip was felt to be too loose with this, and of note, the patient did have a very long femoral neck. Therefore, this a 7 broach was removed, and a size 8 broach was placed into position. With a size 8 broach in position, the approach was slightly proud and gave a slightly longer effective neck length. A trial reduction was accomplished with this initially with a +0 mm femoral head and subsequently a +4 mm femoral head. The +4 mm offset femoral head gave us the stability noted above, it was noted that this made the leg slightly longer, but the opposite hip had significant femoral head collapse as well. This discussion had been undertaken with the patient preoperatively, and he was aware that he would likely have extended length to the first extremity operated. With the final construct as noted, we had the above-noted stabilities and appropriate leg length. Therefore, trial components were removed after the hip was dislocated.? Secondary to intramedullary bleeding, we did place Lyubvo into the intramedullary canal. The size 8 Accolade II 127? neck angle stem was impacted into position without difficulty and onto this was placed a +4 mm x 28 mm femoral head which had been assembled into the MDM insert size 42E.? With a +4 mm femoral head, we had the above-noted stability.? The stem was noted to seat nicely prior to placement of the femoral head.? The wound was copiously irrigated with 20 mL of Betadine and 500 mL of normal saline mixed together.? Subsequently, we suctioned this out and irrigated the wound copiously with lactated Ringer's.? At this time, with all components in appropriate position, the hip was reduced.? Following reduction of the prosthesis once again, we confirmed the stability of the hip.? Leg lengths were also felt to be satisfactory. Being satisfied with the prosthesis, attention was directed to closure.? Closure was accomplished with 0 Vicryl in the capsular tissues.? Piriformis was reattached with 0 Vicryl as well.? Tensor fascia hao was closed with 0 Vicryl in an interrupted fashion.? The subcutaneous tissues were closed with combination of 0 Vicryl and 2-0 Monocryl.? Vancomycin powder and a Gelfoam thrombin mixture was placed into the wound as well.? The skin was closed with a running 3-0 Monocryl followed by Dermabond Elsie and Buster. The patient was placed in an abduction pillow.? Patient was transferred off the operative bed and was brought to the recovery room in a satisfactory condition. He will be discharged to the floor for postoperative rehabilitation and pain management. There were no complications and no specimens. Related Problem List Diagnoses (1) Osteoarthritis of left hip:
--- NOTE | 2023-11-28 15:34 | ANE.PACU2 ---
Inpatient post-anesthesia follow up: Airway intact: Yes Vital signs: Temperature 97 F Pulse Rate 76 Respiratory Rate 16 Blood Pressure 167/84 Pulse Oximetry 95 Oxygen Delivery Me thod Simple Mask Oxygen Flow Rate 8 Fraction of Inspir ed Oxygen Hydration adequate: Yes Nausea and vomiting: No Pain level: 3 Mental status: Baseline
--- NOTE | 2023-11-28 15:38 | XR_ITS ---
WS: [id number] Pelvis, AP portable supine, 11/28/2023 Clinical Data: S/P JEAN-CLAUDE Comparison: Pelvis and left hip, 09/23/2023 Findings: The left hip arthroplasty is in good position. No periprosthetic fractures or loosening is seen. Ther e is severe osteoarthritis of the right hip. Impression: Stable left hip arthroplasty.
[2023-11-28] MEDS: sennosides-docusate Tablet 2 TAB PO (17:53)
[2023-11-28] MEDS: iron polysaccharide complex 150 mg Capsule PO (17:53)
[2023-11-28] MEDS: calcium carbonate 500 mg Chew Tablet 1000 MG PO (17:53)
[2023-11-28] MEDS: chlorhexidine gluconate 0.12% Btl 473 mL 30 ML MUCOUS MEM ×2 (17:54→20:41)
[2023-11-28] MEDS: mupirocin oint 22 gm 1 APPLIC NASAL (17:55)
[2023-11-28] MEDS: tranexamic acid 1,000 MG/100 ML PREMIX 600 MG IV (17:55)
[2023-11-28] MEDS: oxyCODONE 5 mg IR Tab/Cap PO (18:12)
[2023-11-28] MEDS: lisinopril 20 mg Tablet PO (20:41)
[2023-11-28] MEDS: ketorolac 30 mg/mL INJ IVP (21:29)
[2023-11-29] VITALS (7 sets, daily range): BP systolic 128–151; BP diastolic 78–88; PULSE 60–84; RESP 16–19; TEMP 36.6–36.7; O2SAT 94–98; BMI 31.3
[2023-11-29] MEDS: oxyCODONE 5 mg IR Tab/Cap PO ×2 (01:58→09:25)
[2023-11-29] MEDS: ceFAZolin 2,000 MG in sodium chloride 0.9% (plus) 50 ML 100 MG IV ×2 (03:53→11:46)
[2023-11-29 05:35] LABS: Basophils % 0.1 %; Hematocrit 32.3 % (37-53); Lymphocytes # 0.9 10^3/uL (0.8-4.8); Lymphocytes % 5.2 %; Mean Corpuscular HGB Conc 32.2 g/dL (30-55); Mean Corpuscular Hemoglobin 31.6 pg (27-33); Mean Corpuscular Volume 98.2 fl (82-101); Monocytes # 1.1 10^3/uL (0.2-0.9); Monocytes % 6.2 %; Neutrophils # 15.81 10^3/uL (1.8-7.7); Neutrophils % 87.9 %; Nucleated Red Blood Cells % 0 %; Platelet Count 237 10^3/cmm (157-399); Red Blood Count 3.29 10^6/uL (3.85-5.65); Red Cell Distribution Width 12.6 % (12.1-15.1); White Blood Count 17.98 10^3/uL (3.29-11.43)
[2023-11-29 05:56] LABS: Anion Gap 11.5 (5-19); Blood Urea Nitrogen 20 mg/dL (8-23); Calcium 7.8 mg/dL (8.5-10.5); Carbon Dioxide 25 mmol/L (22-29); Chloride 103 mmol/L (98-107); Glucose 109 mg/dL (65-115); Osmolality Calculated 283 mOsm/kg (285-295); Potassium 4.5 mmol/L (3.5-5.1); Sodium 135 mmol/L (136-145)
[2023-11-29] MEDS: acetaminophen 1,000 MG/100 ML PIGGYBACK 400 MG IV (06:16)
[2023-11-29] MEDS: CELEcoxib 200 mg Capsule PO (09:14)
[2023-11-29] MEDS: sennosides-docusate Tablet 2 TAB PO (09:14)
[2023-11-29] MEDS: cholecalciferol (vitamin D3) 1,000 unit Tablet 1000 UNIT PO (09:14)
[2023-11-29] MEDS: calcium carbonate 500 mg Chew Tablet 1000 MG PO (09:14)
[2023-11-29] MEDS: aspirin 325 mg EC Tablet PO (09:14)
[2023-11-29] MEDS: chlorhexidine gluconate 0.12% Btl 473 mL 30 ML MUCOUS MEM (09:15)
[2023-11-29] MEDS: iron polysaccharide complex 150 mg Capsule PO (09:15)
[2023-11-29] MEDS: multivitamin therapeutic Tablet 1 TAB PO (09:15)
[2023-11-29] MEDS: mupirocin oint 22 gm 1 APPLIC NASAL (09:15)
--- NOTE | 2023-11-29 09:27 | PC.CHAP ---
Pastoral Care Encounter/Spiritual Assessment Type of Contact [] Declined pin worker visit [] Patient/Family/Request visit [] Outpatient visit [] Follow-up visit [] Physician referral [] Code/Alert [x] Routine visit [] Staff referral [] Actively dying [] Patient sleeping [] Family support [] [] Out of room [] Palliative care [] [] Receiving care in room [] Pre-surgical visit [] Trauma [] Long length of stay [] ICU visit [] Other: Relational/Emotional Strength [x] Patient feels connected with others/family/visitors/staff [] Distress [] Loneliness/isolation [] Abandonment Spirituality of Patient [x] Person of Shanta [] Attends Sikhism of their Shanta [x] Believes in Prayer [] Reads Bible or Christian materials [] There are Spiritual issues to be addressed Booking Supervisor Interventions [x] Prayer [x] Active listening [] Non-anxious presence [x] Spiritual/emotional support [] Crisis/trauma care [] Spiritual counseling [] Bereavement support [] Provided bereavement packet [] Provided Bible/devotional materials [] Provided toy/stuffed animal, coloring book to patient or family member [] Provided Communion [] Anointing/[place] [] Salvation [x] Completed spiritual assessment [] Other: Impact on Illness or Injury [] Angry [] Fearful [] Anxious [] Often cries [] Exhaustion [] Unable to work [] Unable to attend hindu [] Unable to walk/stand [] Unable to read [] Unable to drive [] Unable to eat/drink [] Unable to sleep [] Unable to be with family [] Patient intubated [] Other: Summary Time spent with patient 5 min
--- NOTE | 2023-11-29 15:21 | P.DS_ITS ---
Discharge Providers Date of Admission: 11/28/23 16:01 Date of Discharge: November 29, 2023 Attending Provider at Admission: Lia Moyer MD Attending Provider at Discharge: Lia Moyer MD Primary Care Provider: Mauricio Gasca MD Diagnoses at Discharge Discharge Diagnosis (1) Osteoarthritis of left hip: Status: Acute Qualifiers: Osteoarthritis type: primary Qualified Code(s): M16.12 - Unilateral primary osteoarthritis, left hip (2) History of total left hip arthroplasty: Status: Acute Permanent problem details: Date of procedure: November 28, 2023 Diagnosis: Severe degenerative osteoarthritis left hip with contracture Procedure done: Left total hip arthroplasty Implants: The [place] total hip system with a size 54 mm by E alpha code Trident II Tritanium acetabular shell with an MDM liner size 42 mm inner diameter by E alpha code. A size 8 Accolade II 127? neck angle hip stem with a size 28 mm x +4 mm femoral head and a presybeterian MDM X3 insert size 28 mm x 42E with intramedullary Lyubov for hemostasis Reason for Visit Reason for Visit: M16.12 Brief History: This 63-year-old gentleman presents today for left total hip arthroplasty. The patient has failed conservative measures. He has significant collapse of the femoral head bilaterally, but it is worse on the left than the right. He was seen and evaluated in the office preoperatively, and after discussion, wished to proceed with total hip arthroplasty. Risks and complications were discussed, and consents were signed. Questions were answered. Hospital Course Hospital Course Patient was admitted to the hospital following same-day surgery for a left total hip arthroplasty. The surgery was very difficult and the patient had many osteophytes. He also had severe lack of range of motion prior to the surgical procedure even under anesthesia. He tolerated the procedure nicely. He was admitted to the hospital overnight under observation status. Following this, he worked well with physical therapy and was comfortable to be discharged home. He was felt to be safe and therefore, was discharged home to follow-up with us in the office as scheduled. Physical Exam Const: COMMON NORMALS: no acute distress, average body habitus, patient oriented x3 and alert GENERAL APPEARANCE: cooperative and comfortable ORIENTATION/CONSCIOUSNESS: Yes awake HENMT: COMMON NORMALS: normocephalic and atraumatic HEAD & SCALP: normocephalic and atraumatic Eye: GENERAL EYE: appearance normal, both eyes and all related structures Chest: COMMONS NORMALS: normal inspection of the chest Resp: COMMON NORMALS: normal respiratory effort EFFORT & INSPECTION: Yes able to speak in complete sentences and Yes symmetric chest movement Extremity: LEFT LOWER EXTREMITY: Yes hip joint (No significant ecchymosis) Left hip: Yes inspection (Minimal swelling), Yes palpation (No tenderness), Yes ROM (Not evaluated) and Yes neurovascular exam (Intact distally) Neuro: COMMON NORMALS: patient oriented x3 SENSORIUM/ORIENTATION: Yes alert Psych: COMMON NORMALS: mental status grossly normal APPEARANCE: Yes grossly normal ATTITUDE: Yes calm and Yes engaged ATTENTION/CONCENTRATION: Yes attention grossly intact Skin: COMMON NORMALS: no rashes or lesions noted GENERAL SKIN EXAM: no rashes or lesions noted Urinary Catheter Management: Lua: Cath Placed During This Visit: yes Reason for Continuing Indwelling Catheter: Perioperative Use in Selected Surgeries Urinary Catheter Date of Insertion: 11/28/23 Urinary Catheter Time of Insertion: 12:15 Discharge Data Studies Completed and Pending Completed Studies During Hospitalization Category Date Time Status XR pelvis 1-2V* [id number] Routine Exams 11/28/23 15:38 Completed Pending at discharge Category Date Time Status Complete Blood Count w/Auto AM LABS Lab 11/30/23 04:00 Uncollected Complete Blood Count w/Auto AM LABS Lab 12/01/23 04:00 Uncollected Laboratory Results WBC 17.98 10^3/uL (3.29-11.43) H 11/29/23 05:19 RBC 3.29 10^6/uL (3.85-5.65) L 11/29/23 05:19 Hgb 10.40 g/dL (11.27-16.99) L 11/29/23 05:19 Hct 32.3 % (37-53) L 11/29/23 05:19 MCV 98.2 fl (82-101) 11/29/23 05:19 MCH 31.6 pg (27-33) 11/29/23 05:19 MCHC 32.2 g/dL (30-55) 11/29/23 05:19 RDW 12.6 % (12.1-15.1) 11/29/23 05:19 Plt Count 237 10^3/cmm (157-399) 11/29/23 05:19 MPV 9.0 fL (7.4-10.4) 11/29/23 05:19 Neut % (Auto) 87.9 % 11/29/23 05:19 Lymph % (Auto) 5.2 % 11/29/23 05:19 Stevens % (Auto) 6.2 % 11/29/23 05:19 Eos % (Auto) 0.0 % 11/29/23 05:19 Baso % (Auto) 0.1 % 11/29/23 05:19 Neut # (Auto) 15.81 10^3/uL (1.8-7.7) H 11/29/23 05:19 Lymph # (Auto) 0.9 10^3/uL (0.8-4.8) 11/29/23 05:19 Stevens # (Auto) 1.1 10^3/uL (0.2-0.9) H 11/29/23 05:19 Eos # (Auto) 0.0 10^3/uL (0.0-0.8) 11/29/23 05:19 Baso # (Auto) 0.0 10^3/uL (0.0-0.1) 11/29/23 05:19 Nucleated RBC % (auto) 0 % 11/29/23 05:19 Nucleated RBCs # 0.0 /100WBC 11/29/23 05:19 Sodium 135 mmol/L (136-145) L 11/29/23 05:19 Potassium 4.5 mmol/L (3.5-5.1) 11/29/23 05:19 Chloride 103 mmol/L (98-107) 11/29/23 05:19 Carbon Dioxide 25 mmol/L (22-29) 11/29/23 05:19 Anion Gap 11.5 (5-19) 11/29/23 05:19 BUN 20 mg/dL (8-23) 11/29/23 05:19 Creatinine 0.8 mg/dL (0.7-1.2) 11/29/23 05:19 GFR Calculation 98.0 mL/min (90-130) 11/29/23 05:19 Glucose 109 mg/dL (65-115) 11/29/23 05:19 Calculated Osmolality 283 mOsm/kg (285-295) L 11/29/23 05:19 Calcium 7.8 mg/dL (8.5-10.5) L 11/29/23 05:19 Vitals Last Vital Signs Temp 98.1 F 11/29/23 12:00 Pulse 84 11/29/23 12:00 Resp 17 11/29/23 12:00 BP 146/78 11/29/23 12:00 Pulse Ox 94 11/29/23 12:00 O2 Del Method Room Air 11/29/23 12:00 O2 Flow Rate 1 11/28/23 20:00 Discharge Plan Discharge Patient Disposition: Home Health Service Condition: Stable Prescriptions: New celecoxib 200 mg Capsule 200 mg PO 1XD 30 Days Qty: 30 0RF acetaminophen 500 mg Tablet 1,000 mg PO Q8H 15 Days Qty: 0 0RF aspirin 325 mg Tablet,Delayed Release (Dr/Ec) 325 mg PO DAILY 30 Days Qty: 0 0RF oxycodone 10 mg tablet 5 - 10 mg PO Q4H PRN (Reason: Moderate Pain) 7 Days Qty: 30 0RF Continued cyclobenzaprine 10 mg tablet 10 mg PO TID PRN (Reason: muscle spasms) lisinopril 20 mg tablet 20 mg PO BEDTIME Discharge Orders: Discharge Order (Routine); Ordered 11/29/23 Ordered By: Lia Moyer Other Ambulatory Orders: DME: Walker (Order) Location: None Selected Ordered By: Lia Moyer [place] [facility] [place] Lia Moyer MD [Physician] - 12/11/23 2:45 pm Discharge Diet: Advance as tolerated and Usual diet Discharge Activity: Increase activity as tolerated, Limit activity as instructed, Use walker/crutches as instructed and As per PT/OT instructions Patient Instructions: Aspirin (By mouth), Oxycodone, Rapid Release (By mouth), Celecoxib (By mouth), Total Hip Replacement (DC), Hip Abduction Pillow (GEN), Joint Replacement Stoplight, Opioid Safety Activity Restrictions/Additional Instructions: Ice and elevation to left hip. Weightbearing as tolerated ambulation. Posterior hip precautions. Gait training, ambulation, and strengthening per physical therapy. Discharge Attestations Time Spent in Discharge Care*: greater than 30 min Specific Discharge Activities: educating patient, documenting/other paperwork and evaluating patient/reviewing data Quality Metrics Clinical Quality Measures [ No reported AMI, CVA or VTE this stay] Coding Level of Care Code Acute Code for Chg Fwd Diagnoses Primary osteoarthritis of left hip M16.12 Osteoarthritis type: primary History of total left hip arthroplasty Z96.642
[2023-11-29] MEDS: ondansetron 2 mg/ML SDV 2 mL 4 MG IVP (15:58)
== END 2023-11-29 16:15 | disposition home health service (06) ==
LOC: MEDSURG 16:04
PROVIDERS: Nurse Practitioner; Admitting Provider Specialist; PCP Family Medicine; Visit Provider Specialist
PROC: (CPT 27130; principal; 2023-11-28 11:55)
DX: M16.12 Unilateral primary osteoarthritis, left hip (principal); M24.552 Contracture, left hip; M25.752 Osteophyte, left hip; I10 Essential (primary) hypertension; E66.01 Morbid (severe) obesity due to excess calories; Z68.31 Body mass index [BMI] 31.0-31.9, adult; G62.9 Polyneuropathy, unspecified
CPT/HCPCS: 27130; 36415; 51702; 72170; 80048; 85025; 97110; 97116; 97161; 97166; 97530; C1776; G0378; J0131; J0360; J0690; J1100; J1170; J1885; J2250; J2371; J2405; J2704; J2710; J3010; J3370; J3490; J7030; P9045

== ENCOUNTER → 2023-12-23 12:24 | Outpatient (BNVA) | payer MEDICAID, SELFPAY | PROVIDERS: PCP Family Medicine; Visit Provider Specialist | DX: Z96.642 Presence of left artificial hip joint (principal); M16.11 Unilateral primary osteoarthritis, right hip | CPT/HCPCS: 73502; 99024 ==

== ENCOUNTER → 2024-03-23 13:15 | Outpatient (BNVA) | payer MEDICAID, SELFPAY | PROVIDERS: PCP Family Medicine; Visit Provider Specialist | DX: Z96.642 Presence of left artificial hip joint (principal); M16.12 Unilateral primary osteoarthritis, left hip | CPT/HCPCS: 73502; 99213 ==

== ENCOUNTER → 2024-06-01 09:18 | Outpatient (BNVA) | payer MEDICAID, SELFPAY | PROVIDERS: PCP Family Medicine; Visit Provider Specialist | DX: M16.11 Unilateral primary osteoarthritis, right hip (principal); M87.051 Idiopathic aseptic necrosis of right femur | CPT/HCPCS: 73502; 99214 ==

== ENCOUNTER 2024-07-29 10:19 | Outpatient (CLI) | payer MEDICAID, SELFPAY ==
[2024-07-29 11:05] LABS: Basophils # 0.1 10^3/uL (0.0-0.1); Basophils % 0.7 %; Eosinophils # 0.1 10^3/uL (0.0-0.8); Eosinophils % 0.7 %; Hematocrit 44.9 % (37-53); Lymphocytes # 1.5 10^3/uL (0.8-4.8); Lymphocytes % 16.6 %; Mean Corpuscular HGB Conc 32.7 g/dL (30-55); Mean Corpuscular Hemoglobin 32.1 pg (27-33); Monocytes # 0.8 10^3/uL (0.2-0.9); Monocytes % 8.2 %; Neutrophils # 6.72 10^3/uL (1.8-7.7); Neutrophils % 73.4 %; Nucleated Red Blood Cells % 0 %; Platelet Count 320 10^3/cmm (157-399); Red Blood Count 4.58 10^6/uL (3.85-5.65); Red Cell Distribution Width 12.6 % (12.1-15.1); White Blood Count 9.15 10^3/uL (3.29-11.43)
[2024-07-29 11:07] LABS: Bilirubin Urine Negative (Negative); Blood Urine Negative (Negative); Glucose Urine UA Negative (Normal); Ketones Urine Negative (Negative); Leukocyte Esterase Urine Negative (Negative); Nitrate Urine Negative (Negative); Protein Urine Trace (Negative); Specific Gravity, Urine 1.025 (1.005-1.030); Urine Appearance Clear (CLEAR); Urine Color Yellow (Yellow); pH Urine 5.5 (5-7)
[2024-07-29 11:12] LABS: Add Urine Microscopic? YES; Bacteria Urine None Seen /hpf; Hyaline Casts Urine 1.21 /lpf; RBC Urine 0-2 /hpf (0-2); Squamous Epithelial Cell Urine 0-5 /hpf (0-5); WBC Urine 0-5 /hpf (0-5)
[2024-07-29 11:25] LABS: Alanine Aminotransferase 8 U/L (0-41); Albumin Level 4.4 g/dL (3.5-5.2); Alkaline Phosphatase 77 U/L (40-130); Anion Gap 14.3 (5-19); Aspartate Amino Transferase 15 U/L (0-40); Blood Urea Nitrogen 26 mg/dL (8-23); Calcium 9.2 mg/dL (8.5-10.5); Carbon Dioxide 26 mmol/L (22-29); Chloride 102 mmol/L (98-107); Globulin 2.9 g/dL (1.3-4.6); Glomerular Filtration Rate 55.9 mL/min (90-130); Glucose 95 mg/dL (65-115); Osmolality Calculated 291 mOsm/kg (285-295); Potassium 4.3 mmol/L (3.5-5.1); Sodium 138 mmol/L (136-145); Total Bilirubin 0.7 mg/dL (0.15-1.2); Total Protein 7.3 g/dL (6.6-8.7)
== END 2024-07-29 10:20 | disposition home or self-care (01) ==
LOC: LAB 10:22
PROVIDERS: PCP Family Medicine; Visit Provider Specialist
DX: Z01.818 Encounter for other preprocedural examination (principal)
CPT/HCPCS: 36415; 80053; 81001; 85025

== ENCOUNTER 2024-08-11 10:01 | Observation (INO) | payer MEDICAID, SELFPAY ==
[2024-08-11] VITALS (18 sets, daily range): BP systolic 126–168; BP diastolic 72–91; PULSE 47–62; RESP 15–22; TEMP 36.1–36.7; O2SAT 92–100; BMI 27.8; BMI 29.6
--- NOTE | 2024-08-11 06:10 | P.ANESASSM_ITS ---
Pre-Anesthetic Assessment Height/Weight: Height 6 ft Preop Diagnosis: Hip osteoarthritis Operation Date: 08/11/24 07:00 Proposed Procedures p Total Hip Arthroplasty(Right) - Lia Moyer MD Was Beta Mara taken within 24 hours: N/A Was Clonidine taken within 24 hours: N/A Social No alcohol and No tobacco Exam alert, oriented x 3, clear to auscultation bilaterally and regular rate & rhythm Airway Submandibular: within normal limits Cervical ROM: within normal limits Mallampati: Class II Dentition: full and other (Chipped front teeth) Anesthetic Plan ASA status: 2 Anesthesia: General Other: No prior issues with anesthesia NPO since yesterday evening Prior JEAN-CLAUDE under general anesthesia in 2021 without issues Patient does have a significant history of back surgery, experiencing epidural hematoma postop requiring evacuation History of hypertension on home lisinopril, most recently taken 08/08/2024 Labs 07/29/2024 reviewed and acceptable for procedure Prior EKG showing sinus rhythm with occasional PVCs Active nancy, METs greater than 4 Plan for general anesthesia Medications/Allergies Home Medications Medication Instructions Recorded Confirmed Last Taken Type lisinopril 20 mg tablet 20 mg PO BEDTIME 06/05/23 08/10/24 08/08/24 History naproxen 500 mg tablet 500 mg PO Q12H PRN Pain 08/03/24 08/10/24 08/07/24 History Allergies Allergy/AdvReac Type Severity Reaction Status Date / Time Penicillins Allergy itching Verified 08/11/24 06:04 [facility] Anesthesia Medical History Hypertension Neuropathy Right leg numbness Surgical History History of appendectomy Family History Other Hypertension Denies family history of Diabetes CAD (coronary artery disease) Social History Smoking and tobacco/nicotine status: never used tobacco/nicotine Alcohol intake: former Substance/Drug Use: former Data Anesthesia Cardiac Studies: No Data to Display
[2024-08-11] MEDS: sodium chloride 0.9% 1,000 ML 30 ML IV (06:32)
[2024-08-11] MEDS: acetaminophen 1,000 MG/100 ML PIGGYBACK 400 MG IV ×3 (06:33→22:30)
[2024-08-11] MEDS: gabapentin 300 mg Capsule PO (06:33)
[2024-08-11] MEDS: CELEcoxib 200 mg Capsule 400 MG PO (06:33)
--- NOTE | 2024-08-11 06:55 | P.HPUD_ITS ---
Surgery/Procedure H&P Update DATE OF PROCEDURE: August 11, 2024 DATE H&P PERFORMED: 08/03/24 H&P UPDATE INFORMATION: I have reviewed H&P completed within last 30 days, I have examined patient prior to procedure, No changes to prior documentation and H&P is in [facility] [place] on date indicated PREOP DIAGNOSIS: Hip osteoarthritis PLANNED PROCEDURE: Operation Date: 08/11/24 07:00 Proposed Procedures p Total Hip Arthroplasty(Right) - Lia Moyer MD Related Problem List Diagnoses (1) Primary osteoarthritis of right hip:
[2024-08-11] MEDS: ceFAZolin 2,000 mg SDV 2000 MG IV (07:05)
[2024-08-11] MEDS: VANCOMYCIN ADD-Vantage 1,000 MG in 0.9% NaCl ADD-Vantage 250 ML 250 MG IV (07:11)
[2024-08-11] MEDS: tranexamic acid 1,000 mg/10mL SDV 1000 MG IV (07:31)
[2024-08-11] MEDS: vancomycin 1,000 MG SDV 1000 MG IRRIGATION (08:00)
[2024-08-11] MEDS: vancomycin 1,000 MG SDV 1000 MG XX (08:00)
--- NOTE | 2024-08-11 10:10 | XRR_ITS ---
PROCEDURE INFORMATION: Exam: XR Pelvis Exam date and time: 08/11/2024 10:31 AM Age: 63 years old Clinical indication: Device placement; Other: Left hip; Prior surgery; Surgery date: Post-operative (0-2 days); Additional info: Status post right total hip arthroplasty, low ap pelvis TECHNIQUE: Imaging protocol: Radiologic exam of the pelvis. Views: 1 or 2 view. COMPARISON: CR XR hip RT 2-3V wo/w pel* [id number] 06/01/2024 9:23 AM FINDINGS: Bones/joints: Status post right total hip arthroplasty with expected surrounding soft tissue swelling and air lucency. Stable left total hip arthroplasty. No evidence of acute fracture or dislocation. Soft tissues: See Bones/joints finding. XR/XR pelvis 1-2V* [id number] IMPRESSION: Status post right total hip arthroplasty without evidence of immediate complication.
--- NOTE | 2024-08-11 10:26 | P.OP_ITS ---
Operative Report Date of procedure: August 11, 2024 Pre-op diagnosis: Severe degenerative osteoarthritis right hip with contracture Post-op diagnosis: Severe degenerative osteoarthritis right hip with contracture Post-op findings: Severely limitation in range of motion with large osteophytes and complete denudement of cartilage with femoral head deformity. Procedure done: Right total hip arthroplasty Implants: The [place] total hip system with a size 56 mm by E alpha code Trident II Tritanium acetabular shell with an MDM liner size 46 mm inner diameter by F alpha code.? A size 8 Accolade II 127? neck angle hip stem with a size 28 mm x +4 mm femoral head and a tenriism MDM X3 insert size 28 mm x 46F Specimens removed/disposition: Bone, disposed of Pathology: None Surgeon: Lia Moyer MD Industrial Machine Assembler: Na Peña, nurse practitioner, who services were required for positioning, exposure, manipulation, retraction, and closure Anesthesia: General (Intubated, ASA 2) Estimated blood loss (mL): 400 IV fluids (mL): 1,900 Urine output (mL): 150 Complications: None Findings: Severe degenerative osteoarthritis with large osteophytes and contractures about the hip. The patient was stable at 90 degrees of flexion with 80 degrees of internal rotation and 30 degrees of adduction. Toe hang was stable to approximately 60 degrees of flexion, and external rotation was stable. Leg lengths appeared equal postoperatively. Condition: stable Disposition: PACU (Then to floor for postoperative rehabilitation and pain management) Brief History: This 63-year-old gentleman presents today for right total hip arthroplasty. He previously underwent left total hip arthroplasty in November of this year and has done well following this. Similar to the opposite hip, he has significant collapse of the femoral head, and preoperatively, he notes that the right leg feels somewhat shortened. Discussion was undertaken regarding total hip arthroplasty risks and complications were discussed, and consents were signed. Questions were answered. Procedure: Patient was brought to the operating theater.? He was transferred to the operating room table and subsequently administered a general anesthesia, intubated, ASA 2.? Following administration of adequate anesthesia, the patient was placed in full lateral position and held in position with a pegboard.? The patient's right lower extremity was then prepped and draped in usual fashion utilizing DuraPrep.? It was draped free.? Prepping and draping were both quite difficult secondary to the patient's significant contractures. Following prepping and draping, a surgical pause was performed.? At the time of surgical pause, we identified the site and side of surgery.? We also identified the patient and preoperative surgical markings.?The patient's operative leg was compared to the opposite leg as a length comparison.? Confirmation was made of equipment availability.? Additionally, the patient's preoperative IV antibiotic, Ancef 2 g, and TXA administration was confirmed as well.? X-rays were also reviewed. Following the surgical pause, an incision was made centering over the patient's greater trochanter continuing proximally and distally as necessary to allow access to the hip joint.? Dissection continued through skin and soft tissues using a scalpel, and hemostasis was obtained using electrocautery. The tensor fascia hao was identified and incised longitudinally.? Sciatic nerve was identified and protected throughout the surgical procedure.? A Charnley U retractor was placed after the tensor fascia hao had been incised longitudinally, and the sciatic nerve had been identified.? The hip was internally rotated, and the piriformis muscle was identified and tagged. Pirifo rmis muscle along with the remaining short external rotators were then incised from the posterior aspect of the hip joint.? These were retracted posteriorly.? The capsule was entered in a T-type fashion with the edges being tagged, and subsequently the hip was dislocated after removal of osteophytes posteriorly, inferiorly, and from the femoral head. The labrum was excised with further excision accomplished once the femoral head was removed.? Following hip dislocation, a femoral neck osteotomy was accomplished in the appropriate position.? The head was measured, but it was quite deformed.? We then evaluated the acetabulum. The femur was retracted anteriorly.? Soft tissues were retracted, and the labrum was removed.? We then began reaming.? Once the femoral head was removed, there was noted to be significant loss of cartilage over the head with the previously noted deformity and cartilage loss within the acetabulum.? We reamed to a size 55 to allow for a size 56 acetabular shell. The acetabulum was impacted into position.? The MDM liner was then impacted into position with care being taken to assure it seated appropriately. It was noted that the acetabulum matched the bony anatomy.? The cup was noted to seat nicely and had good fixation upon impact. Large osteophytes were removed from the posterior and anterior aspect of the acetabulum following cup insertion. Attention was directed to the proximal femur.? The proximal femur was lifted out of the wound.? A canal finder was passed after the box chisel.? The reamer was used to lateralize.? We then began broaching. We broached sequentially and had excellent fit and fill with the size 8 broach. The 8 broach was noted to seat nicely, and did sit a little proud similar to the opposite side to help restore leg length and stability to the hip. A trial reduction was accomplished with this initially with a +0 mm femoral head and subsequently a +4 mm femoral head. The +4 mm offset femoral head gave us the stability noted above, and leg lengths were felt to be equal. With the final construct as noted, we had the above- noted stabilities and appropriate leg length. Therefore, trial components were removed after the hip was dislocated. The size 8 Accolade II 127? neck angle stem was impacted into position without difficulty and onto this was placed a +4 mm x 28 mm femoral head which had been assembled into the MDM insert size 42E.? With a +4 mm femoral head, we had the above-noted stability.? The stem was noted to seat nicely prior to placement of the femoral head.? The wound was copiously irrigated with 20 mL of Betadine and 500 mL of normal saline mixed together.? Subsequently, we suctioned this out and irrigated the wound copiously with lactated Ringer's.? At this time, with all components in appropriate position, the hip was reduced.? Following reduction of the prosthesis once again, we confirmed the stability of the hip.? Leg lengths were also felt to be satisfactory. Being satisfied with the prosthesis, attention was directed to closure.? Closure was accomplished with 0 Vicryl in the capsular tissues.? Piriformis was reattached with 0 Vicryl as well.? Tensor fascia hao was closed with 0 Vicryl in an interrupted fashion.? The subcutaneous tissues were closed with combination of 2-0 Monocryl.? Vancomycin powder and a Gelfoam thrombin mixture was placed into the wound as well.? The skin was closed with a running 3-0 Monocryl strata fix followed by Lorinabsebastián Zimmerman and Buster. The patient was placed in an abduction pillow.? Patient was transferred off the operative bed and was brought to the recovery room in a satisfactory condition. He will be discharged to the floor for postoperative rehabilitation and pain management. There were no complications and no specimens. Related Problem List Diagnoses (1) Primary osteoarthritis of right hip: (2) Avascular necrosis of bone of right hip: (3) History of total left hip arthroplasty:
--- NOTE | 2024-08-11 10:58 | ANE.PACU2 ---
Inpatient post-anesthesia follow up: Airway intact: Yes Vital signs: Temperature 97.8 F Pulse Rate 52 Respiratory Rate 18 Blood Pressure 156/84 Pulse Oximetry 98 Oxygen Delivery Me thod Nasal Cannula Oxygen Flow Rate 3 Fraction of Inspir ed Oxygen Hydration adequate: Yes Nausea and vomiting: No Pain level: 1 Mental status: Baseline
--- NOTE | 2024-08-11 11:15 | PC.NURSE ---
1105 - YVON Uribe into pts room on floor - verified right hip dressing c/d/i with nurse as well as 1st round of floor vital signs - temp currently at 97.9 - no distress noted BP, pulse and resp wnl - pt has 3L NC on with this nurse transitioning care to YVON Uribe
--- NOTE | 2024-08-11 11:25 | PC.NURSE ---
Pt arrived to floor via bed at 1105am accompanied by Jesenia RN and VIRGEN Arora. Pt sinus julia at 53.
[2024-08-11] MEDS: chlorhexidine gluconate 0.12% Btl 473 mL 30 ML MUCOUS MEM ×3 (15:45→20:53)
[2024-08-11] MEDS: oxyCODONE 5 mg IR Tab/Cap PO ×2 (15:45→20:54)
[2024-08-11] MEDS: ceFAZolin 2,000 mg SDV 2000 MG IVP ×2 (15:48→22:29)
[2024-08-11] MEDS: tranexamic acid 1,000 MG/100 ML PREMIX 600 MG IV (15:50)
[2024-08-11] MEDS: mupirocin oint 22 gm 1 APPLIC NASAL (17:17)
[2024-08-11] MEDS: sennosides-docusate Tablet 2 TAB PO (17:18)
[2024-08-11] MEDS: calcium carbonate 500 mg Chew Tablet 1000 MG PO (17:18)
[2024-08-11] MEDS: iron polysaccharide complex 150 mg Capsule PO (17:18)
[2024-08-11] MEDS: CELEcoxib 200 mg Capsule PO (20:53)
[2024-08-11] MEDS: lisinopril 20 mg Tablet PO (20:54)
[2024-08-12 00:09] VITALS: BP 124/66; PULSE 66; RESP 17; TEMP 36.8; O2SAT 92
[2024-08-12 04:37] VITALS: BP 107/62; PULSE 61; RESP 17; TEMP 36.7; O2SAT 95
[2024-08-12 05:22] VITALS: RESP 18
[2024-08-12] MEDS: oxyCODONE 5 mg IR Tab/Cap PO ×2 (05:22→10:06)
[2024-08-12] MEDS: ceFAZolin 2,000 mg SDV 2000 MG IVP (06:34)
[2024-08-12 06:39] LABS: Basophils % 0.2 %; Eosinophils % 0.2 %; Hematocrit 31.6 % (37-53); Lymphocytes # 1.1 10^3/uL (0.8-4.8); Lymphocytes % 11.6 %; Mean Corpuscular HGB Conc 32.3 g/dL (30-55); Mean Corpuscular Hemoglobin 31.1 pg (27-33); Mean Corpuscular Volume 96.3 fl (82-101); Mean Platelet Volume 9.3 fL (7.4-10.4); Monocytes # 0.7 10^3/uL (0.2-0.9); Monocytes % 7.4 %; Neutrophils # 7.89 10^3/uL (1.8-7.7); Neutrophils % 80.3 %; Nucleated Red Blood Cells % 0 %; Platelet Count 246 10^3/cmm (157-399); Red Blood Count 3.28 10^6/uL (3.85-5.65); Red Cell Distribution Width 11.9 % (12.1-15.1); White Blood Count 9.83 10^3/uL (3.29-11.43)
[2024-08-12] MEDS: acetaminophen 1,000 MG/100 ML PIGGYBACK 400 MG IV (06:44)
[2024-08-12 08:04] VITALS: BP 136/60; PULSE 66; RESP 18; TEMP 36.7; O2SAT 94
[2024-08-12] MEDS: multivitamin therapeutic Tablet 1 TAB PO (08:45)
[2024-08-12] MEDS: CELEcoxib 200 mg Capsule PO (08:45)
[2024-08-12] MEDS: cholecalciferol (vitamin D3) 1,000 unit Tablet 1000 UNIT PO (08:45)
[2024-08-12] MEDS: aspirin 325 mg EC Tablet PO (08:45)
[2024-08-12] MEDS: iron polysaccharide complex 150 mg Capsule PO (08:45)
[2024-08-12] MEDS: sennosides-docusate Tablet 2 TAB PO (08:45)
[2024-08-12] MEDS: mupirocin oint 22 gm 1 APPLIC NASAL (08:46)
[2024-08-12] MEDS: chlorhexidine gluconate 0.12% Btl 473 mL 30 ML MUCOUS MEM (08:46)
[2024-08-12 10:06] VITALS: RESP 18; O2SAT 98
[2024-08-12] MEDS: VANCOMYCIN ADD-Vantage 1,000 MG in 0.9% NaCl ADD-Vantage 250 ML 250 MG IV (10:07)
--- NOTE | 2024-08-12 10:07 | PC.CHAP ---
Pastoral Care Encounter/Spiritual Assessment Type of Contact [] Declined planning manager visit [] Patient/Family/Request visit [] Outpatient visit [] Follow-up visit [] Physician referral [] Code/Alert [x] Routine visit [] Staff referral [] Actively dying [] Patient sleeping [] Family support [] [] Out of room [] Palliative care [] [] Receiving care in room [] Pre-surgical visit [] Trauma [] Long length of stay [] ICU visit [] Other: Relational/Emotional Strength [x] Patient feels connected with others/family/visitors/staff [] Distress [] Loneliness/isolation [] Abandonment Spirituality of Patient [x] Person of Shanta [] Attends Episcopal of their Shanta [x] Believes in Prayer [] Reads Bible or Judaism materials [] There are Spiritual issues to be addressed Torch Heater Interventions [x] Prayer [x] Active listening [] Non-anxious presence [x] Spiritual/emotional support [] Crisis/trauma care [] Spiritual counseling [] Bereavement support [] Provided bereavement packet [] Provided Bible/devotional materials [] Provided toy/stuffed animal, coloring book to patient or family member [] Provided Communion [] Anointing/[place] [] Salvation [x] Completed spiritual assessment [] Other: Impact on Illness or Injury [] Angry [] Fearful [] Anxious [] Often cries [] Exhaustion [] Unable to work [] Unable to attend zoroastrian [] Unable to walk/stand [] Unable to read [] Unable to drive [] Unable to eat/drink [] Unable to sleep [] Unable to be with family [] Patient intubated [] Other: Summary Time spent with patient 5 min
[2024-08-12 12:18] VITALS: BP 111/61; PULSE 59; RESP 18; TEMP 36.7; O2SAT 97
--- NOTE | 2024-08-12 13:45 | P.DS_ITS ---
Discharge Providers Date of Admission: 08/11/24 10:01 Date of Discharge: August 12, 2024 Attending Provider at Admission: Lia Moyer MD Attending Provider at Discharge: Lia Moyer MD Primary Care Provider: Mauricio Gasca Diagnoses at Discharge Discharge Diagnosis (1) Primary osteoarthritis of right hip: Status: Acute (2) Avascular necrosis of bone of right hip: Status: Acute (3) History of total left hip arthroplasty: Status: Acute Permanent problem details: Date of procedure: November 28, 2023 Diagnosis: Severe degenerative osteoarthritis left hip with contracture Procedure done: Left total hip arthroplasty Implants: The Dl total hip system with a size 54 mm by E alpha code Trident II Tritanium acetabular shell with an MDM liner size 42 mm inner diameter by E alpha code. A size 8 Accolade II 127? neck angle hip stem with a size 28 mm x +4 mm femoral head and a zoroastrianism MDM X3 insert size 28 mm x 42E with intramedullary Lyubov for hemostasis (4) History of total right hip arthroplasty: Status: Acute Reason for Visit Reason for Visit: M16.11 Brief History: This 63-year-old gentleman presents today for right total hip arthroplasty. He previously underwent left total hip arthroplasty in November of this year and has done well following this. Similar to the opposite hip, he has significant collapse of the femoral head, and preoperatively, he notes that the right leg feels somewhat shortened. Discussion was undertaken regarding total hip arthroplasty risks and complications were discussed, and consents were signed. Questions were answered. Hospital Course Hospital Course This 63-year-old gentleman presents for same-day surgery for right total hip arthroplasty. He previously underwent left total hip arthroplasty and did well. The patient is seen in his room and has no evidence of complication, DVT, or other issue of concern. He did well with physical therapy. Dressing is dry and intact. There is no evidence of DVT. The patient is felt safe for discharge to home. He is in agreement and wishes to be discharged home. He will follow-up in the in the office as scheduled. Physical Exam Const: COMMON NORMALS: no acute distress, average body habitus, patient oriented x3 and alert GENERAL APPEARANCE: cooperative and comfortable ORIENTATION/CONSCIOUSNESS: Yes awake HENMT: COMMON NORMALS: normocephalic and atraumatic HEAD & SCALP: normocephalic and atraumatic Eye: GENERAL EYE: appearance normal, both eyes and all related structures Chest: COMMONS NORMALS: normal inspection of the chest Resp: COMMON NORMALS: normal respiratory effort EFFORT & INSPECTION: Yes able to speak in complete sentences and Yes symmetric chest movement Extremity: RIGHT LOWER EXTREMITY: Yes hip joint (OpSite is dry and intact.) Right hip: Yes inspection (No significant ecchymosis.), Yes ROM (Not evaluated.) and Yes neurovascular exam (Intact distally with no evidence of DVT.) Neuro: COMMON NORMALS: patient oriented x3 SENSORIUM/ORIENTATION: Yes alert Psych: COMMON NORMALS: mental status grossly normal APPEARANCE: Yes grossly normal ATTITUDE: Yes calm and Yes engaged ATTENTION/CONCENTRATION: Yes attention grossly intact Skin: COMMON NORMALS: no rashes or lesions noted GENERAL SKIN EXAM: no rashes or lesions noted Urinary Catheter Management: Lua: Cath Placed During This Visit: yes Reason for Continuing Indwelling Catheter: Perioperative Use in Selected Surgeries Urinary Catheter Date of Insertion: 08/11/24 Urinary Catheter Time of Insertion: 07:26 Discharge Data Studies Completed and Pending Completed Studies During Hospitalization Category Date Time Status XR pelvis 1-2V* [id number] Routine Exams 08/11/24 10:10 Completed Radiology Impressions Pelvis X-Ray 08/11/24 10:10 IMPRESSION: Status post right total hip arthroplasty without evidence of immediate complication. Laboratory Results WBC 9.83 10^3/uL (3.29-11.43) 08/12/24 05:52 RBC 3.28 10^6/uL (3.85-5.65) L 08/12/24 05:52 Hgb 10.20 g/dL (11.27-16.99) L 08/12/24 05:52 Hct 31.6 % (37-53) L 08/12/24 05:52 MCV 96.3 fl (82-101) 08/12/24 05:52 MCH 31.1 pg (27-33) 08/12/24 05:52 MCHC 32.3 g/dL (30-55) 08/12/24 05:52 RDW 11.9 % (12.1-15.1) L 08/12/24 05:52 Plt Count 246 10^3/cmm (157-399) 08/12/24 05:52 MPV 9.3 fL (7.4-10.4) 08/12/24 05:52 Neut % (Auto) 80.3 % 08/12/24 05:52 Lymph % (Auto) 11.6 % 08/12/24 05:52 [place] % (Auto) 7.4 % 08/12/24 05:52 Eos % (Auto) 0.2 % 08/12/24 05:52 Baso % (Auto) 0.2 % 08/12/24 05:52 Neut # (Auto) 7.89 10^3/uL (1.8-7.7) H 08/12/24 05:52 Lymph # (Auto) 1.1 10^3/uL (0.8-4.8) 08/12/24 05:52 [place] # (Auto) 0.7 10^3/uL (0.2-0.9) 08/12/24 05:52 Eos # (Auto) 0.0 10^3/uL (0.0-0.8) 08/12/24 05:52 Baso # (Auto) 0.0 10^3/uL (0.0-0.1) 08/12/24 05:52 Nucleated RBC % (auto) 0 % 08/12/24 05:52 Nucleated RBCs # 0.0 /100WBC 08/12/24 05:52 Vitals Last Vital Signs Temp 98.1 F 08/12/24 12:18 Pulse 59 L 08/12/24 12:18 Resp 18 08/12/24 12:18 BP 111/61 08/12/24 12:18 Pulse Ox 97 08/12/24 12:18 O2 Del Method Room Air 08/12/24 12:18 O2 Flow Rate 3 08/11/24 14:15 Discharge Plan Discharge Patient Disposition: Home Condition: Stable Prescriptions: New celecoxib 200 mg Capsule 200 mg PO 1XD 30 Days Qty: 30 0RF acetaminophen 500 mg Tablet 1,000 mg PO Q8H 15 Days Qty: 90 0RF aspirin 325 mg Tablet,Delayed Release (Dr/Ec) 325 mg PO DAILY 30 Days Qty: 30 0RF oxycodone 5 mg Tablet 5 - 10 mg PO Q4H PRN (Reason: Moderate To Severe Pain) 7 Days Qty: 40 0RF Continued lisinopril 20 mg tablet 20 mg PO BEDTIME Held naproxen 500 mg tablet 500 mg PO Q12H PRN (Reason: Pain) Hold Instructions: Resume on 09/11/24. You may resume Naprosyn once Celebrex is completed Discharge Orders: Discharge Order (Routine); Ordered 08/12/24 Ordered By: Lia Moyer Referrals: Lia Moyer MD [Physician] - 08/26/24 11:00 am Discharge Diet: Advance as tolerated and Usual diet Discharge Activity: Limit activity as instructed, Use walker/crutches as instructed and As per PT/OT instructions Patient Instructions: Aspirin (By mouth), Oxycodone, Rapid Release (By mouth), Celecoxib (By mouth), Acute Wound Care (DC), Total Hip Replacement (GEN), Joint Replacement Stoplight, Opioid Safety, Post Anesthesia Care Activity Restrictions/Additional Instructions: Ambulate weightbearing as tolerated. Ice to right hip. Posterior hip precautions. You may shower, but do not submerge your hip in water. Keep the dressing in place until it comes off on its own unless it begins to leak, and at that point, you should remove it. Follow-up in the office as scheduled. Discharge Attestations Time Spent in Discharge Care*: greater than 30 min Specific Discharge Activities: educating patient, documenting/other paperwork and evaluating patient/reviewing data Quality Metrics Clinical Quality Measures [ No reported AMI, CVA or VTE this stay] Coding Level of Care Code Acute Code for Chg Fwd Diagnoses Primary osteoarthritis of right hip M16.11 Avascular necrosis of bone of right hip M87.051 History of total left hip arthroplasty Z96.642 History of total right hip arthroplasty Z96.641
[2024-08-12] MEDS: acetaminophen 500 mg Tablet 1000 MG PO (14:42)
== END 2024-08-12 15:35 | disposition home or self-care (01) ==
LOC: MEDSURG 10:03
PROVIDERS: Admitting Provider Specialist; PCP Family Medicine; Visit Provider Specialist
PROC: (CPT 27130; principal; 2024-08-11 07:00)
DX: M16.11 Unilateral primary osteoarthritis, right hip (principal); M24.551 Contracture, right hip; M25.751 Osteophyte, right hip; M87.051 Idiopathic aseptic necrosis of right femur; I10 Essential (primary) hypertension; G62.9 Polyneuropathy, unspecified
CPT/HCPCS: 27130; 36415; 51702; 72170; 85025; 97110; 97161; 97166; 97535; C1776; G0378; J0131; J0690; J1100; J1171; J1885; J2250; J2405; J2704; J3010; J3370; J3490; J7030; J7050; P9045

== ENCOUNTER → 2024-08-26 11:26 | Outpatient (BNVA) | payer MEDICAID, SELFPAY | PROVIDERS: PCP Family Medicine; Visit Provider Specialist | DX: Z96.641 Presence of right artificial hip joint (principal); Z48.89 Encounter for other specified surgical aftercare; M87.051 Idiopathic aseptic necrosis of right femur; M16.11 Unilateral primary osteoarthritis, right hip | CPT/HCPCS: 73502; 99024 ==